=== PATIENT | female | born 1980 | race African-American/Black ===

== ENCOUNTER 2016-07-14 20:59 | Emergency (ER) | payer OTHER ==
[~2016-07-14] VITALS: Ht 157.5 cm; Wt 59.0 kg
[2016-07-14] MEDS ORDERED: ZIPRASIDONE IM 20 MG VIAL. IM ONE (21:30)
[2016-07-14 22:00] LABS: BASO % 1 % (0-3); EOS % 5 % (0-3); HEMATOCRIT 36.4 % (36.0-47.0); HEMOGLOBIN 11.9 g/dL (12.0-15.5); LYMPH # 1.9 x10^3/uL (1.0-4.8); LYMPH % 28 % (24-48); MEAN CORPUSCULAR HEMOGLOBIN 28 pg (25-35); MEAN CORPUSCULAR HGB CONC 33 g/dL (31-37); MEAN CORPUSCULAR VOLUME 86 fL (79-100); MONO % 11 % (0-9); NEUT % 56 % (31-73); PLATELET COUNT 248 x10^3/uL (140-400); RED BLOOD COUNT 4.23 x10^6/uL (3.50-5.40); RED CELL DISTRIBUTION WIDTH 13.4 % (11.5-14.5); WHITE BLOOD COUNT 6.8 x10^3/uL (4.0-11.0)
[2016-07-14 22:13] LABS: CREATININE 0.9 mg/dL (0.6-1.0); GFR 87.3; POTASSIUM 3.7 mmol/L (3.5-5.1)
[2016-07-14 22:18] LABS: ETHANOL < 10 mg/dL (0-10)
[2016-07-14 22:19] LABS: ALBUMIN 3.7 g/dL (3.4-5.0); ALBUMIN/GLOBULIN RATIO 0.8 (1.0-1.7); TOTAL BILIRUBIN 0.3 mg/dL (0.2-1.0); TOTAL PROTEIN 8.2 g/dL (6.4-8.2)
[2016-07-14 23:30] LABS: BILIRUBIN,URINE SMALL (NEG); GLUCOSE,URINE NEGATIVE (NEG); NITRITE,URINE POSITIVE (NEG); PH,URINE 5.5; UROBILINOGEN,URINE 0.2 mg/dL (0.2 mg/dL)
[2016-07-14 23:36] LABS: BARBITURATES NEG (NEG); BENZODIAZEPINES NEG (NEG); CANNABINOIDS POS (NEG); COCAINE NEG (NEG); METHADONE NEG (NEG); OPIATES NEG (NEG); PHENCYCLIDINE POS (NEG)
[2016-07-14 23:38] LABS: ETHANOL, URINE NEG (NEG)
[2016-07-14 23:41] LABS: PROTEIN,URINE NEGATIVE (NEG-TRACE)
[2016-07-14 23:42] LABS: BACTERIA,URINE MODERATE /HPF (0-FEW); RBC,URINE 0 /HPF (0-2); SQUAMOUS EPITHELIAL CELL,UR FEW /LPF
[2016-07-14 23:43] LABS: NEG OBC UR NEG
[2016-07-14 23:44] LABS: POS OBC UR POS
[2016-07-15 02:18] VITALS: BP 81/44
--- NOTE | 2016-07-15 03:44 | PHYS DOC ---
Past Medical History Past Medical History: No Pertinent History, Bipolar, Depression Past Surgical History: Cholecystectomy, Tubal ligation, Other Additional Past Surgical Histo: Conization. Alcohol Use: None Drug Use: None Adult General Chief Complaint Chief Complaint: PSYCH EVALUATION HPI HPI Patient is a 35 year old female who is in today by EMS and police after being picked up in a vehicle that was pulled over. Patient apparently was agitated and there was a concern that she was on drugs. Upon arrival to the ER patient was extremely agitated and confused. Patient was tearful and begging to see her f father. History and physical exam on this patient is unobtainable secondary to her uncooperative state upon arrival to the ER. Patient reports that she has no history of suicidal ideation the past. Patient denies any suicidal ideation currently. Patient reports she has a history of bipolar affective disorder. Patient denies any history of schizophrenia in the past. Patient denies any history of psychosis in the past. Patient denies any alcohol drug use. Patient reports that she was at home and her father was concerned about her so he called the ambulance. However in talking to EMS it appears that her father was driving in a car that she was in and the uphold over. The patient apparently had a warrant out for her arrest so they attempted to arrest her however secondary to her confused state they brought her here to the ER to be medically clear. Upon arrival to the ER patient was agitated tearful and not able to give a clear history. We had the psychiatric assessment team come to evaluate her secondary to possible concerns for suicidal ideation however patient denied any suicidal ideation to the psychiatric assessment team. Patient denies any fevers shaking chills nausea vomiting or diarrhea. Patient was given 10 mg of IM Geodon in order to help sedate her so that we can draw labs on her and evaluate her more thoroughly. After the Geodon was given patient slept for approximately 4 hours. Patient was easily arousable. Patient was reevaluated multiple times during her stay here. At 3:40 AM patient is currently alert awake oriented 3. Patient is ambulating. Patient's blood pressure is 108/72 currently. Patient currently has no complaints. Patient has no fevers shaking chills nausea vomiting diarrhea chest pain short of breath cough cold or runny nose. Patient reports that she lives with her parents and she is requesting to be released to their custody. Patient denies any suicidal ideation. I discussed with the patient her urine drug screen results of positive PCP, methamphetamine, marijuana and she reports that she is not surprised since she has used that in the past. Review of Systems Review of Systems Review of systems at 3:40 AM. Constitutional: Denies fever or chills [] Eyes: Denies change in visual acuity, redness, or eye pain [] HENT: Denies nasal congestion or sore throat [] Respiratory: Denies cough or shortness of breath [] Cardiovascular: No additional information not addressed in HPI [] GI: Denies abdominal pain, nausea, vomiting, bloody stools or diarrhea [] : Denies dysuria or hematuria [] Musculoskeletal: Denies back pain or joint pain [] Integument: Denies rash or skin lesions [] Neurologic: Denies headache, focal weakness or sensory changes [] Endocrine: Denies polyuria or polydipsia [] Current Medications Current Medications Current Medications Medications (Trade) Dose Ordered Sig/Yanni Start Time Stop Time Status Last Admin Dose Admin Ziprasidone (Geodon Im) 10 mg 1X ONCE 07/14/16 21:30 07/14/16 21:31 DC 07/14/16 21:30 10 MG Allergies Allergies Allergies Coded Allergies Type Severity Reaction Last Updated Verified No Known Drug Allergies 11/06/13 No Physical Exam Physical Exam Repeat physical exam at 3:41 AM. Constitutional: Well developed, well nourished, no acute distress, non-toxic appearance. [] HENT: Normocephalic, atraumatic, bilateral external ears normal, oropharynx moist, no oral exudates, nose normal. [] Eyes: PERRLA, EOMI, conjunctiva normal, no discharge. [] Neck: Normal range of motion, no tenderness, supple, no stridor. [] Cardiovascular:Heart rate regular rhythm, no murmur [] Lungs & Thorax: Bilateral breath sounds clear to auscultation [] Abdomen: Bowel sounds normal, soft, no tenderness, no masses, no pulsatile masses. [] Skin: Warm, dry, no erythema, no rash. [] Back: No tenderness, no CVA tenderness. [] Extremities: No tenderness, no cyanosis, no clubbing, ROM intact, no edema. [] Neurologic: Alert and oriented X 3, normal motor function, normal sensory function, no focal deficits noted. [] Psychologic: Affect normal, judgement normal, mood normal. [] Current Patient Data Vital Signs Vital Signs Date Time Temp Pulse Resp B/P Pulse Ox O2 Delivery O2 Flow Rate FiO2 07/15/16 02:18 77 81/44 99 Room Air 07/14/16 21:05 98.4 24 98.4 Lab Values Laboratory Tests Test 07/14/16 21:51 07/14/16 23:18 White Blood Count 6.8x10^3/uL (4.0-11.0) Red Blood Count 4.23x10^6/uL (3.50-5.40) Hemoglobin 11.9g/dL (12.0-15.5) L Hematocrit 36.4% (36.0-47.0) Mean Corpuscular Volume 86fL (79-100) Mean Corpuscular Hemoglobin 28pg (25-35) Mean Corpuscular Hemoglobin Concent 33g/dL (31-37) Red Cell Distribution Width 13.4% (11.5-14.5) Platelet Count 248x10^3/uL (140-400) Neutrophils (%) (Auto) 56% (31-73) Lymphocytes (%) (Auto) 28% (24-48) Monocytes (%) (Auto) 11% (0-9) H Eosinophils (%) (Auto) 5% (0-3) H Basophils (%) (Auto) 1% (0-3) Neutrophils # (Auto) 3.8x10^3uL (1.8-7.7) Lymphocytes # (Auto) 1.9x10^3/uL (1.0-4.8) Monocytes # (Auto) 0.7x10^3/uL (0.0-1.1) Eosinophils # (Auto) 0.3x10^3/uL (0.0-0.7) Basophils # (Auto) 0.0x10^3/uL (0.0-0.2) Sodium Level 143mmol/L (136-145) Potassium Level 3.7mmol/L (3.5-5.1) Chloride Level 105mmol/L (98-107) Carbon Dioxide Level 28mmol/L (21-32) Anion Gap 10 (6-14) Blood Urea Nitrogen 11mg/dL (7-20) Creatinine 0.9mg/dL (0.6-1.0) Estimated GFR (Cockcroft-Gault) 87.3 BUN/Creatinine Ratio 12 (6-20) Glucose Level 87mg/dL (70-99) Calcium Level 9.0mg/dL (8.5-10.1) Total Bilirubin 0.3mg/dL (0.2-1.0) Aspartate Amino Transferase (AST) 11U/L (15-37) L Alanine Aminotransferase (ALT) 12U/L (14-59) L Alkaline Phosphatase 73U/L (46-116) Total Protein 8.2g/dL (6.4-8.2) Albumin 3.7g/dL (3.4-5.0) Albumin/Globulin Ratio 0.8 (1.0-1.7) L Salicylates Level 4.7mg/dL (2.8-20.0) Salicylate Last Dose Date Salicylate Last Dose Time Acetaminophen Level < 2mcg/ml (10-30) L Acetaminophen Last Dose Date Acetaminophen Last Dose Time Ethyl Alcohol Level < 10mg/dL (0-10) Urine Collection Type Unknown Urine Color Svetlana Urine Clarity Clear Urine pH 5.5 Urine Specific [place] >=1.030 Urine Protein Negativemg/dL (NEG-TRACE) Urine Glucose (UA) Negativemg/dL (NEG) Urine Ketones (Stick) Tracemg/dL (NEG) Urine Blood Trace (NEG) Urine Nitrite Positive (NEG) Urine Bilirubin Small (NEG) Urine Urobilinogen Dipstick 0.2mg/dL (0.2 mg/dL) Urine Leukocyte Esterase Small (NEG) Urine RBC 0/HPF (0-2) Urine WBC 1-4/HPF (0-4) Urine Squamous Epithelial Cells Few/LPF Urine Bacteria Moderate/HPF (0-FEW) Urine Mucus Mod/LPF Urine Test Negative (NEG) Urine Opiates Screen Neg (NEG) Urine Methadone Screen Neg (NEG) Urine Barbiturates Neg (NEG) Urine Phencyclidine Screen Pos (NEG) Urine Amphetamine/Methamphetamine Pos (NEG) Urine Benzodiazepines Screen Neg (NEG) Urine Cocaine Screen Neg (NEG) Urine Cannabinoids Screen Pos (NEG) Urine Ethyl Alcohol Neg (NEG) Laboratory Tests 07/14/16 21:51 Laboratory Tests 07/14/16 21:51 EKG EKG [] Radiology/Procedures Radiology/Procedures [] Course & Med Decision Making Course & Med Decision Making Pertinent Labs and Imaging studies reviewed. (See chart for details) [] This is a 35-year-old female who presents to the ER today with altered mental status that was likely secondary to poly-drug abuse. Patient's urine drug screen was positive for PCP, methamphetamine, marijuana. Patient was given Geodon in the ER in order to help sedate her so that we can draw labs and assess her medically. After several hours in the ER sleeping and resting patient is currently alert awake and oriented 3 and bleeding without any problems at all. Patient is requesting to be released to the ER. Patient currently has no issues with competency with capacity to make decisions. Patient will be discharged home in stable condition. Dragon Disclaimer Dragon Disclaimer This electronic medical record was generated, in whole or in part, using a voice recognition dictation system. Departure Departure Impression: Primary Impression: PCP abuse Additional Impressions: Methamphetamine abuse Altered mental status Psychosis Disposition: 01 HOME, SELF-CARE Condition: IMPROVED Referrals: UNKNOWN PCP NAME (PCP) Patient Instructions: Drug Abuse, FAQs, Methamphetamine Abuse, Complications, Psychosis Scripts No Active Prescriptions or Reported Meds Problem Qualifiers ALHAJI ROBERTSON MD Jul 15, 2016 03:44
== END 2016-07-15 04:05 | disposition home or self-care (01) ==
LOC: ER 20:59
DX: F15.10 Other stimulant abuse, uncomplicated (principal); R41.82 Altered mental status, unspecified; F29 Unspecified psychosis not due to a substance or known physiological condition; F31.9 Bipolar disorder, unspecified; F16.10 Hallucinogen abuse, uncomplicated; Z98.51 Tubal ligation status; Z90.49 Acquired absence of other specified parts of digestive tract
CPT/HCPCS: 36415; 80053; 81001; 81025; 85027; 87086; 96372; 99284; G0480; G0481; G6038; J3486; 80196

== ENCOUNTER 2017-08-16 15:14 | Emergency (ER) | payer OTHER ==
[2017-08-16] MEDS: ONDANSETRON PF 4 MG/2 ML VIAL. IV ×2 (15:54)
[2017-08-16] MEDS: IV NORMAL SALINE 1000ML BAG 1,000 ML IV ×2 (15:57)
[2017-08-16] MEDS: KETOROLAC 30 MG/ML INJ. IV ×2 (16:29)
[2017-08-16] MEDS: HYDROcodone/APAP 5/325MG 1 TAB TABLET PO ×2 (16:32)
[2017-08-16] MEDS: PENICILLIN G BENZATHINE LA 2,400,000 UNIT/4 ML DISP.SYRIN. IM ×2 (17:04)
[2017-08-16] MEDS ORDERED: ONDANSETRON ODT 4 MG TAB.RAPDIS. ×2 (17:33)
[2017-08-16] MEDS: ONDANSETRON ODT 4 MG TAB.RAPDIS. PO ×2 (17:37)
== END 2017-08-16 18:03 | disposition home or self-care (01) ==
LOC: ER 15:14
DX: A53.9 Syphilis, unspecified (principal); J02.9 Acute pharyngitis, unspecified; F31.9 Bipolar disorder, unspecified; F12.10 Cannabis abuse, uncomplicated; F15.10 Other stimulant abuse, uncomplicated; F16.10 Hallucinogen abuse, uncomplicated; F17.200 Nicotine dependence, unspecified, uncomplicated; Z90.49 Acquired absence of other specified parts of digestive tract
CPT/HCPCS: 96361; 96372; 96374; 96375; 99284-25; J0561; J1885; J2405; J7030; Q0162

== ENCOUNTER 2017-11-23 17:11 | Emergency (ER) | payer OTHER ==
[2017-11-23 17:45] LABS: ADD MAN DIFF? NO
[2017-11-23 17:49] LABS: BASO # 0.1 x10^3/uL (0.0-0.2); BASO % 1 % (0-3); EOS # 0.3 x10^3/uL (0.0-0.7); EOS % 5 % (0-3); HEMATOCRIT 37.3 % (36.0-47.0); HEMOGLOBIN 12.3 g/dL (12.0-15.5); LYMPH # 1.7 x10^3/uL (1.0-4.8); LYMPH % 30 % (24-48); MEAN CORPUSCULAR HEMOGLOBIN 28 pg (25-35); MEAN CORPUSCULAR HGB CONC 33 g/dL (31-37); MEAN CORPUSCULAR VOLUME 83 fL (79-100); MONO # 0.6 x10^3/uL (0.0-1.1); MONO % 12 % (0-9); NEUT # 2.9 x10^3uL (1.8-7.7); NEUT % 53 % (31-73); PLATELET COUNT 200 x10^3/uL (140-400); RED BLOOD COUNT 4.49 x10^6/uL (3.50-5.40); RED CELL DISTRIBUTION WIDTH 15.9 % (11.5-14.5); WHITE BLOOD COUNT 5.6 x10^3/uL (4.0-11.0)
[2017-11-23 18:18] LABS: ANION GAP 7 (6-14); BLOOD UREA NITROGEN 11 mg/dL (7-20); BUN/CREATININE RATIO 14 (6-20); CALCIUM 8.5 mg/dL (8.5-10.1); CARBON DIOXIDE 28 mmol/L (21-32); CHLORIDE 102 mmol/L (98-107); CREATININE 0.8 mg/dL (0.6-1.0); GFR 98.8; GLUCOSE 122 mg/dL (70-99); POTASSIUM 3.3 mmol/L (3.5-5.1); SODIUM 137 mmol/L (136-145)
[2017-11-23 18:20] LABS: ALBUMIN 3.5 g/dL (3.4-5.0); ALBUMIN/GLOBULIN RATIO 0.7 (1.0-1.7); ALK PHOS 86 U/L (46-116); ALT (SGPT) 21 U/L (14-59); AST (SGOT) 18 U/L (15-37); TOTAL BILIRUBIN 0.4 mg/dL (0.2-1.0); TOTAL PROTEIN 8.2 g/dL (6.4-8.2)
[2017-11-23 18:26] LABS: ETHANOL < 10 mg/dL (0-10); TROPONINI < 0.017 ng/mL (0.000-0.055)
[2017-11-23 18:28] LABS: CKMB INDEX 0.6 % (0-4); CREATINE KINASE 159 U/L (26-192)
[2017-11-23] MEDS: IV NORMAL SALINE 1000ML BAG 1,000 ML IV (18:30)
[2017-11-23] MEDS: ONDANSETRON PF 4 MG/2 ML VIAL. IV (18:30)
[2017-11-23 19:19] LABS: BILIRUBIN,URINE SMALL (NEG); CLARITY,URINE CLEAR; COLOR,URINE YELLOW; GLUCOSE,URINE NEGATIVE (NEG); NITRITE,URINE NEGATIVE (NEG); PH,URINE 5.5; PROTEIN,URINE NEGATIVE (NEG-TRACE); UROBILINOGEN,URINE 0.2 mg/dL (0.2 mg/dL)
[2017-11-23 19:38] LABS: AMPHETAMINE/METHAMPHETAMINE POS (NEG); BARBITURATES NEG (NEG); BENZODIAZEPINES NEG (NEG); CANNABINOIDS POS (NEG); COCAINE POS (NEG); ETHANOL, URINE NEG (NEG); METHADONE NEG (NEG); OPIATES NEG (NEG); PHENCYCLIDINE POS (NEG)
[2017-11-23 19:40] LABS: BACTERIA,URINE FEW /HPF (0-FEW); RBC,URINE RARE /HPF (0-2); SQUAMOUS EPITHELIAL CELL,UR MANY /LPF; WBC,URINE RARE /HPF (0-4)
[2017-11-23] MEDS: POTASSIUM CHLORIDE 20 MEQ TABLET.ER. PO (20:02)
[2017-11-24 08:20] LABS: POC GLUCOSE 125 mg/dL (70-99)
== END 2017-11-23 22:22 | disposition home or self-care (01) ==
LOC: ER 22:22
DX: F29 Unspecified psychosis not due to a substance or known physiological condition (principal); F19.10 Other psychoactive substance abuse, uncomplicated; F31.9 Bipolar disorder, unspecified; F12.10 Cannabis abuse, uncomplicated; F15.10 Other stimulant abuse, uncomplicated; F16.10 Hallucinogen abuse, uncomplicated
CPT/HCPCS: 36415; 71045; 80053; 80307; 81001; 82553; 82962; 84484; 85025; 93005; 96361; 96374; 99285-25; G0480; J2405; J7030

== ENCOUNTER 2018-06-01 12:48 | Emergency (ER) | payer OTHER ==
[~2018-06-01] VITALS: Ht 160 cm; Wt 60.8 kg
[~2018-06-01 12:48] MED LIST: FLUC150T PO
[2018-06-01 12:56] VITALS: BP 115/75
[2018-06-01] MEDS: DIPHTH,PERTUSS(ACELL),TET TOX 0.5 ML DISP.SYRIN. VAX IM ONE (13:09)
--- NOTE | 2018-06-01 13:21 | PHYS DOC ---
Past Medical History Past Medical History: Bipolar, Depression Past Surgical History: Cholecystectomy, Tubal ligation, Other Additional Past Surgical Histo: Conization Alcohol Use: None Drug Use: Marijuana, Methamphetamine, Phencyclidine Adult General Chief Complaint Chief Complaint: LACERATION/AVULSION [facility] HPI Patient is a 37 year old female who presents with a small laceration to her lower lip with a small laceration to her upper lip as well. The patient states that she was in her bathroom today when the glass sliding door fell from the shower track. She states that it hit her in her lip. She denies any other injury. The lacerations are not bleeding or gaping. She is not up-to-date on her tetanus status. Review of Systems Review of Systems Constitutional: Denies fever or chills [] Eyes: Denies change in visual acuity, redness, or eye pain [] HENT: Denies nasal congestion or sore throat [] Respiratory: Denies cough or shortness of breath [] Cardiovascular: No additional information not addressed in HPI [] GI: Denies abdominal pain, nausea, vomiting, bloody stools or diarrhea [] : Denies dysuria or hematuria [] Musculoskeletal: Denies back pain or joint pain [] Integument: See history of present illness Neurologic: Denies headache, focal weakness or sensory changes [] Endocrine: Denies polyuria or polydipsia [] All other systems were reviewed and found to be within normal limits, except as documented in this note. Current Medications Current Medications Current Medications Medications (Trade) Dose Ordered Sig/Yanni Start Time Stop Time Status Last Admin Dose Admin Diphtheria/ Tetanus/Acell Pertussis (Boostrix) 0.5 ml ONCE ONCE 06/01/18 13:15 06/01/18 13:16 DC 06/01/18 13:09 0.5 ML Allergies Allergies Allergies Coded Allergies Type Severity Reaction Last Updated Verified No Known Drug Allergies 08/29/17 No Physical Exam Physical Exam Constitutional: Well developed, well nourished, no acute distress, non-toxic appearance. [] Cardiovascular:Heart rate regular rhythm, no murmur [] Lungs & Thorax: Bilateral breath sounds clear to auscultation [] Abdomen: Bowel sounds normal, soft, no tenderness, no masses, no pulsatile masses. [] Skin: 0.5 cm shallow laceration to the lower lip with no gaping, 0.25 cm laceration to the upper lip with no gaping Neurologic: Alert and oriented X 3, normal motor function, normal sensory function, no focal deficits noted. [] Psychologic: Affect normal, judgement normal, mood normal. [] Current Patient Data Vital Signs Vital Signs Date Time Temp Pulse Resp B/P (MAP) Pulse Ox O2 Delivery O2 Flow Rate FiO2 06/01/18 12:56 98.1 96 16 115/75 (88) 98 Room Air 98.1 EKG EKG [] Radiology/Procedures Radiology/Procedures [] Course & Med Decision Making Course & Med Decision Making Pertinent Labs and Imaging studies reviewed. (See chart for details) I explained to the patient that she would have more problem with suturing these lacerations then letting them heal naturally. She has been encouraged to use Chapstick to help keep the lips moisturized while they are healing and to keep them clean. She is in agreement with this plan. Dragon Disclaimer Dragon Disclaimer This electronic medical record was generated, in whole or in part, using a voice recognition dictation system. Departure Departure Impression: Primary Impression: Laceration Disposition: 01 HOME, SELF-CARE Condition: STABLE Referrals: NO PCP (PCP) Patient Instructions: Laceration Care, Adult Additional Instructions: Keep wound clean and dry. Use the lip moisturizer you were given to help with healing. Follow-up with your primary care provider if not improving in one week or return to the emergency department if worsening. BHARATHI ADAMS APRN Jun 01, 2018 13:21
== END 2018-06-01 13:24 | disposition home or self-care (01) ==
LOC: ER 12:48
DX: S01.511A Laceration without foreign body of lip, initial encounter (principal); W22.8XXA Striking against or struck by other objects, initial encounter; Y93.89 Activity, other specified; Y92.091 Bathroom in other non-institutional residence as the place of occurrence of the external cause; Y99.8 Other external cause status
CPT/HCPCS: 90471; 90715; 99283

== ENCOUNTER 2019-05-14 10:27 | Emergency (ER) | payer MEDICAID, OTHER ==
[~2019-05-14] VITALS: Ht 160 cm; Wt 65.8 kg
[2019-05-14 11:13] LABS: BILIRUBIN,URINE NEGATIVE (NEG); CLARITY,URINE CLEAR; COLOR,URINE YELLOW; NITRITE,URINE NEGATIVE (NEG); PH,URINE 6.5; PROTEIN,URINE NEGATIVE (NEG-TRACE)
[2019-05-14 11:28] LABS: BACTERIA,URINE 0 /HPF (0-FEW); RBC,URINE 0 /HPF (0-2); SQUAMOUS EPITHELIAL CELL,UR MOD /LPF
--- NOTE | 2019-05-14 11:29 | PHYS DOC ---
Past Medical History Past Medical History: Bipolar, Depression Past Surgical History: Cholecystectomy, Tubal ligation, Other Additional Past Surgical Histo: Conization Alcohol Use: None Drug Use: Marijuana, Methamphetamine, Phencyclidine Adult General Chief Complaint Chief Complaint: VAGINAL PROBLEM HPI HPI Patient is a 38 year old female who presents with vaginal discharge, flank pain, chills, nausea this been ongoing for several weeks. The patient rates her pain 6 out of 10 in severity and sharp. No other complaints. Review of Systems Review of Systems Constitutional: Reports fever or chills [] Eyes: Denies change in visual acuity, redness, or eye pain [] HENT: Denies nasal congestion or sore throat [] Respiratory: Denies cough or shortness of breath [] Cardiovascular: No additional information not addressed in HPI [] GI: Reports abdominal pain, nausea, Denies vomiting, bloody stools or diarrhea [] : Denies dysuria but reports discharge and hematuria. Musculoskeletal: Denies back pain or joint pain [] Integument: Denies rash or skin lesions [] Neurologic: Denies headache, focal weakness or sensory changes [] Endocrine: Denies polyuria or polydipsia [] Complete systems were reviewed and found to be within normal limits, except as documented in this note. Current Medications Current Medications Current Medications Medications (Trade) Dose Ordered Sig/Yanni Start Time Stop Time Status Last Admin Dose Admin Morphine Sulfate (Morphine Sulfate) 4 mg 1X ONCE 05/14/19 11:30 05/14/19 11:31 DC 05/14/19 11:54 4 MG Ondansetron HCl (Zofran) 4 mg 1X ONCE 05/14/19 11:30 05/14/19 11:31 DC 05/14/19 11:55 4 MG Sodium Chloride 1,000 ml @ 1,000 mls/hr 1X ONCE 05/14/19 11:30 05/14/19 12:29 DC 05/14/19 12:00 1,000 MLS/HR Allergies Allergies Allergies Coded Allergies Type Severity Reaction Last Updated Verified Sulfa (Sulfonamide Antibiotics) Allergy Severe Swelling 05/14/19 Yes Physical Exam Physical Exam Constitutional: Well developed, well nourished, no acute distress, non-toxic appearance. [] HENT: Normocephalic, atraumatic, bilateral external ears normal, oropharynx blanco st, no oral exudates, nose normal. [] Eyes: PERRLA, EOMI, conjunctiva normal, no discharge. [] Neck: Normal range of motion, no tenderness, supple, no stridor. [] Cardiovascular:Heart rate regular rhythm, no murmur [] Lungs & Thorax: Bilateral breath sounds clear to auscultation [] Abdomen: Bowel sounds normal, soft, flank tenderness bilaterally., no masses, no pulsatile masses. [] Skin: Warm, dry, no erythema, no rash. [] Back: No tenderness, no CVA tenderness. [] Extremities: No tenderness, no cyanosis, no clubbing, ROM intact, no edema. [] Neurologic: Alert and oriented X 3, normal motor function, normal sensory function, no focal deficits noted. [] Psychologic: Affect normal, judgement normal, mood normal. [] Pelvic Exam: External exam is normal and without rash, No CMT, OS is closed, white discharge, uterus NTTP, No adnexal masses or tenderness noted Current Patient Data Vital Signs Vital Signs Date Time Temp Pulse Resp B/P (MAP) Pulse Ox O2 Delivery O2 Flow Rate FiO2 05/14/19 11:54 16 98 Room Air 05/14/19 11:03 97.7 112 119/67 (84) 97.7 Lab Values Laboratory Tests Test 05/14/19 10:50 05/14/19 11:01 05/14/19 11:43 Urine Collection Type Unknown Urine Color Yellow Urine Clarity Clear Urine pH 6.5 Urine Specific [place] 1.025 Urine Protein Negative mg/dL (NEG-TRACE) Urine Glucose (UA) Negative mg/dL (NEG) Urine Ketones (Stick) Negative mg/dL (NEG) Urine Blood Negative (NEG) Urine Nitrite Negative (NEG) Urine Bilirubin Negative (NEG) Urine Urobilinogen Dipstick 1.0 mg/dL (0.2 mg/dL) Urine Leukocyte Esterase Negative (NEG) Urine RBC 0 /HPF (0-2) Urine WBC 1-4 /HPF (0-4) Urine Squamous Epithelial Cells Mod /LPF Urine Bacteria 0 /HPF (0-FEW) Urine Mucus Mod /LPF POC Urine HCG, Qualitative Hcg negative (Negative) White Blood Count 9.2 x10^3/uL (4.0-11.0) Red Blood Count 4.57 x10^6/uL (3.50-5.40) Hemoglobin 13.2 g/dL (12.0-15.5) Hematocrit 38.8 % (36.0-47.0) Mean Corpuscular Volume 85 fL (79-100) Mean Corpuscular Hemoglobin 29 pg (25-35) Mean Corpuscular Hemoglobin Concent 34 g/dL (31-37) Red Cell Distribution Width 14.6 % (11.5-14.5) H Platelet Count 233 x10^3/uL (140-400) Neutrophils (%) (Auto) 65 % (31-73) Lymphocytes (%) (Auto) 20 % (24-48) L Monocytes (%) (Auto) 11 % (0-9) H Eosinophils (%) (Auto) 4 % (0-3) H Basophils (%) (Auto) 1 % (0-3) Neutrophils # (Auto) 6.0 x10^3/uL (1.8-7.7) Lymphocytes # (Auto) 1.9 x10^3/uL (1.0-4.8) Monocytes # (Auto) 1.0 x10^3/uL (0.0-1.1) Eosinophils # (Auto) 0.3 x10^3/uL (0.0-0.7) Basophils # (Auto) 0.1 x10^3/uL (0.0-0.2) Sodium Level 137 mmol/L (136-145) Potassium Level 3.8 mmol/L (3.5-5.1) Chloride Level 100 mmol/L (98-107) Carbon Dioxide Level 29 mmol/L (21-32) Anion Gap 8 (6-14) Blood Urea Nitrogen 14 mg/dL (7-20) Creatinine 1.3 mg/dL (0.6-1.0) H Estimated GFR (Cockcroft-Gault) 56.1 BUN/Creatinine Ratio 11 (6-20) Glucose Level 83 mg/dL (70-99) Calcium Level 9.0 mg/dL (8.5-10.1) Total Bilirubin 0.2 mg/dL (0.2-1.0) Aspartate Amino Transferase (AST) 16 U/L (15-37) Alanine Aminotransferase (ALT) 18 U/L (14-59) Alkaline Phosphatase 99 U/L (46-116) Total Protein 8.2 g/dL (6.4-8.2) Albumin 3.2 g/dL (3.4-5.0) L Albumin/Globulin Ratio 0.6 (1.0-1.7) L Laboratory Tests 05/14/19 11:43 Laboratory Tests 05/14/19 11:43 Microbiology 05/14/19 Wet Prep - Final, Complete EKG EKG [] Radiology/Procedures Radiology/Procedures [][facility] [address] [place] [address] IMAGING REPORT Signed PATIENT: MILLI KNUTSON ACCOUNT: [id number] : 1980 LOCATION: ER AGE: 38 SEX: F EXAM STATUS: REG ER ORD. PHYSICIAN: DAMION JOSHI APRN REASON: flank pain, chills PROCEDURE: CT ABDOMEN PELVIS WO CONTRAST EXAM: CT ABDOMEN/PELVIS WITHOUT CONTRAST. HISTORY: Flank pain, chills. TECHNIQUE: Computed tomography of the abdomen and pelvis was performed without intravenous contrast. COMPARISON: None. FINDINGS: Lung windows through the visualized portions of the bases reveal mild atelectasis. Bone windows reveal no suspicious lesions. There are no renal or ureteral calculi. There is no hydronephrosis. There are no clear renal lesions without contrast. The gallbladder is surgically absent. The liver, pancreas, spleen, and adrenal glands are unremarkable without contrast. There are no pathologically enlarged lymph nodes. The appendix is not inflamed. There is no small bowel obstruction. Fallopian tube closure device is no longer appear associated with the adnexa. IMPRESSION: 1. No renal or ureteral calculus. No hydronephrosis. 2. Bilateral fallopian tube closure device is no longer appear associated with the adnexa. Correlate for undesired fertility. *One or more of the following individualized dose reduction techniques were utilized for this examination: 1. Automated exposure control. 2. Adjustment of the mA and/or kV according to patient size. 3. Use of iterative reconstruction technique. Electronically signed by: Praveena Garcia MD (05/14/2019 1:02 PM) [facility] DICTATED and SIGNED BY: MAUDE GARCIA MD DATE: 05/14/19 6392 Course & Med Decision Making Course & Med Decision Making Pertinent Labs and Imaging studies reviewed. (See chart for details) Will get pelvic, labs, CT and ua. Will give supportive care. Wet prep shows trich and clue cells. Will treat. GC/CHLAM is pending. Em Disclaimer Em Disclaimer This electronic medical record was generated, in whole or in part, using a voice recognition dictation system. Departure Departure Impression: Primary Impression: Trichomoniasis Additional Impressions: Bacterial vaginosis Concern about STD in female without diagnosis Disposition: HOME, SELF-CARE Condition: STABLE Referrals: NO PCP (PCP) Patient Instructions: Bacterial Vaginosis, Sexually Transmitted Disease, Trichomoniasis Additional Instructions: Thank you for visiting [facility]. We appreciate you trusting us with your care. If any additional problems come up don't hesitate to return to visit us. Please follow up with your primary care provider so they can plan additional care if needed and know about the problem that you had. If symptoms worsen come back to the Emergency Department. Any concerning symptoms that start such as chest pain, shortness of air, weakness or numbness on one side of the body, running high fevers or any other concerning symptoms return to the ER. You have been prescribed an antibiotic today to help fight your infection. P jenae take all of the antibiotic as directed. If after 48 hours the infection is not improving, please return for more care. If the infection worsens, return to ER for additional care. Please do not drink alcohol with Flagyl. Scripts Metronidazole (FLAGYL) 500 Mg Tablet 1 TAB PO BID for 7 Days, #14 TAB Prov: DAMION JOSHI APRN 05/14/19 Problem Qualifiers DAMION JOSHI APRN May 14, 2019 11:29
[2019-05-14] MEDS ORDERED: IV NORMAL SALINE 1000ML BAG 1,000 ML IV ONE (11:30)
[2019-05-14] MEDS ORDERED: ONDANSETRON PF 4 MG/2 ML VIAL. IV ONE (11:30)
[2019-05-14] MEDS ORDERED: MORPHINE SULFATE 4 MG/ML VIAL. IV ONE (11:30)
[2019-05-14 12:10] LABS: CREATININE 1.3 mg/dL (0.6-1.0); GFR 56.1; POTASSIUM 3.8 mmol/L (3.5-5.1)
[2019-05-14 12:12] LABS: BASO # 0.1 x10^3/uL (0.0-0.2); BASO % 1 % (0-3); EOS # 0.3 x10^3/uL (0.0-0.7); EOS % 4 % (0-3); HEMATOCRIT 38.8 % (36.0-47.0); HEMOGLOBIN 13.2 g/dL (12.0-15.5); LYMPH # 1.9 x10^3/uL (1.0-4.8); LYMPH % 20 % (24-48); MEAN CORPUSCULAR HEMOGLOBIN 29 pg (25-35); MEAN CORPUSCULAR HGB CONC 34 g/dL (31-37); MEAN CORPUSCULAR VOLUME 85 fL (79-100); MONO % 11 % (0-9); NEUT % 65 % (31-73); PLATELET COUNT 233 x10^3/uL (140-400); RED BLOOD COUNT 4.57 x10^6/uL (3.50-5.40); RED CELL DISTRIBUTION WIDTH 14.6 % (11.5-14.5); WHITE BLOOD COUNT 9.2 x10^3/uL (4.0-11.0)
[2019-05-14 12:16] LABS: ALBUMIN 3.2 g/dL (3.4-5.0); ALBUMIN/GLOBULIN RATIO 0.6 (1.0-1.7); TOTAL BILIRUBIN 0.2 mg/dL (0.2-1.0); TOTAL PROTEIN 8.2 g/dL (6.4-8.2)
[2019-05-14 12:30] VITALS: BP 96/70
--- NOTE | 2019-05-14 13:04 | RAD ---
EXAM: CT ABDOMEN/PELVIS WITHOUT CONTRAST. HISTORY: Flank pain, chills. TECHNIQUE: Computed tomography of the abdomen and pelvis was performed without intravenous contrast. COMPARISON: None. FINDINGS: Lung windows through the visualized portions of the bases reveal mild atelectasis. Bone windows reveal no suspicious lesions. There are no renal or ureteral calculi. There is no hydronephrosis. There are no clear renal lesions without contrast. The gallbladder is surgically absent. The liver, pancreas, spleen, and adrenal glands are unremarkable without contrast. There are no pathologically enlarged lymph nodes. The appendix is not inflamed. There is no small bowel obstruction. Fallopian tube closure device is no longer appear associated with the adnexa. IMPRESSION: 1. No renal or ureteral calculus. No hydronephrosis. 2. Bilateral fallopian tube closure device is no longer appear associated with the adnexa. Correlate for undesired fertility. *One or more of the following individualized dose reduction techniques were utilized for this examination: 1. Automated exposure control. 2. Adjustment of the mA and/or kV according to patient size. 3. Use of iterative reconstruction technique. Electronically signed by: Praveena Garcia MD (05/14/2019 1:02 PM) [facility]
[2019-05-14] MEDS ORDERED: METR500T PO (13:10)
[2019-05-17 18:09] LABS: GC PROBE Negative (Negative)
== END 2019-05-14 13:23 | disposition home or self-care (01) ==
LOC: ER 10:27
DX: N76.0 Acute vaginitis (principal); B96.89 Other specified bacterial agents as the cause of diseases classified elsewhere; A59.9 Trichomoniasis, unspecified; Z20.2 Contact with and (suspected) exposure to infections with a predominantly sexual mode of transmission; F31.9 Bipolar disorder, unspecified; Z90.49 Acquired absence of other specified parts of digestive tract; Z98.51 Tubal ligation status; Z88.2 Allergy status to sulfonamides
CPT/HCPCS: 36415; 74176; 80053; 81001; 81025; 85025; 87491; 87591; 96374; 96375; 99285; J2270; J2405; J7030; Q0111

== ENCOUNTER 2019-07-22 14:00 | Emergency (ER) | payer OTHER ==
[~2019-07-22] VITALS: Ht 160 cm; Wt 105.0 kg
[~2019-07-22 14:00] MED LIST changes: +METR500T PO
--- NOTE | 2019-07-22 14:37 | PHYS DOC ---
Past Medical History Past Medical History: Bipolar, Depression Past Surgical History: Cholecystectomy, Tubal ligation, Other Additional Past Surgical Histo: Conization Alcohol Use: None Drug Use: Marijuana, Methamphetamine, Phencyclidine Social History Narrative: LAST USED MARIJUANA 1 WK AGO Adult General Chief Complaint Chief Complaint: ABDOMINAL PAIN HPI HPI Patient is a 38 year old female who presents with low mid abdominal pain that wraps around to her back. The last 3 days. She states when she urinates she will have a cramping sharp pain. She denies any blood in her urine. She states that she does have urinary frequency. She also has left lower back dental pain does has a broken tooth. She states she does not have a dentist. Review of Systems Review of Systems GI: Low mid abdominal pain, denies nausea, vomiting, bloody stools or diarrhea [] : dysuria or hematuria [] Musculoskeletal: Lateral low back pain or joint pain [] All other systems were reviewed and found to be within normal limits, except as documented in this note. Current Medications Current Medications Current Medications Medications (Trade) Dose Ordered Sig/Yanni Start Time Stop Time Status Last Admin Dose Admin Acetaminophen/ Hydrocodone Bitart (Lortab 5/325) 1 tab 1X ONCE 07/22/19 14:45 07/22/19 14:46 DC 07/22/19 14:43 1 TAB Phenazopyridine HCl (Pyridium) 200 mg 1X ONCE 07/22/19 14:45 07/22/19 14:46 DC 07/22/19 14:43 200 MG Allergies Allergies Allergies Coded Allergies Type Severity Reaction Last Updated Verified Sulfa (Sulfonamide Antibiotics) Allergy Severe Swelling 05/14/19 Yes Physical Exam Physical Exam Constitutional: Well developed, well nourished, no acute distress, non-toxic appearance. [] HENT: Normocephalic, atraumatic, bilateral external ears normal, oropharynx moist, no oral exudates, nose normal. Left lower back molar broken with red gum line. No facial swelling. [] Eyes: PERRLA, EOMI, conjunctiva normal, no discharge. [] Neck: Normal range of motion, no tenderness, supple, no stridor. [] Cardiovascular:Heart rate regular rhythm, no murmur [] Lungs & Thorax: Bilateral breath sounds clear to auscultation [] Abdomen: Bowel sounds normal, soft, no tenderness, no masses, no pulsatile masses. [] Skin: Warm, dry, no erythema, no rash. [] Back: No tenderness, Bilateral CVA tenderness. [] Extremities: No tenderness, no cyanosis, no clubbing, ROM intact, no edema. [] Neurologic: Alert and oriented X 3, normal motor function, normal sensory function, no focal deficits noted. [] Psychologic: Affect normal, judgement normal, mood normal. [] Current Patient Data Vital Signs Vital Signs Date Time Temp Pulse Resp B/P (MAP) Pulse Ox O2 Delivery O2 Flow Rate FiO2 07/22/19 15:13 85 111/71 (84) 100 Room Air 07/22/19 14:43 16 07/22/19 14:00 98.6 98.6 Lab Values Laboratory Tests Test 07/22/19 14:03 07/22/19 14:45 Urine Collection Type Unknown Urine Color Yellow Urine Clarity Clear Urine pH 6.0 Urine Specific [place] >=1.030 Urine Protein Negative mg/dL (NEG-TRACE) Urine Glucose (UA) Negative mg/dL (NEG) Urine Ketones (Stick) Negative mg/dL (NEG) Urine Blood Negative (NEG) Urine Nitrite Negative (NEG) Urine Bilirubin Negative (NEG) Urine Urobilinogen Dipstick 1.0 mg/dL (0.2 mg/dL) Urine Leukocyte Esterase Negative (NEG) Urine RBC 0 /HPF (0-2) Urine WBC Occ /HPF (0-4) Urine Squamous Epithelial Cells Many /LPF Urine Bacteria Moderate /HPF (0-FEW) Urine Test Negative (NEG) Urine Opiates Screen Neg (NEG) Urine Methadone Screen Neg (NEG) Urine Barbiturates Neg (NEG) Urine Phencyclidine Screen Neg (NEG) Urine Amphetamine/Methamphetamine Pos (NEG) Urine Benzodiazepines Screen Neg (NEG) Urine Cocaine Screen Pos (NEG) Urine Cannabinoids Screen Pos (NEG) Urine Ethyl Alcohol Neg (NEG) White Blood Count 8.5 x10^3/uL (4.0-11.0) Red Blood Count 4.31 x10^6/uL (3.50-5.40) Hemoglobin 12.4 g/dL (12.0-15.5) Hematocrit 36.9 % (36.0-47.0) Mean Corpuscular Volume 86 fL (79-100) Mean Corpuscular Hemoglobin 29 pg (25-35) Mean Corpuscular Hemoglobin Concent 34 g/dL (31-37) Red Cell Distribution Width 14.3 % (11.5-14.5) Platelet Count 234 x10^3/uL (140-400) Neutrophils (%) (Auto) 62 % (31-73) Lymphocytes (%) (Auto) 21 % (24-48) L Monocytes (%) (Auto) 13 % (0-9) H Eosinophils (%) (Auto) 3 % (0-3) Basophils (%) (Auto) 0 % (0-3) Neutrophils # (Auto) 5.3 x10^3/uL (1.8-7.7) Lymphocytes # (Auto) 1.8 x10^3/uL (1.0-4.8) Monocytes # (Auto) 1.1 x10^3/uL (0.0-1.1) Eosinophils # (Auto) 0.3 x10^3/uL (0.0-0.7) Basophils # (Auto) 0.0 x10^3/uL (0.0-0.2) Sodium Level 140 mmol/L (136-145) Potassium Level 3.7 mmol/L (3.5-5.1) Chloride Level 102 mmol/L (98-107) Carbon Dioxide Level 30 mmol/L (21-32) Anion Gap 8 (6-14) Blood Urea Nitrogen 10 mg/dL (7-20) Creatinine 1.0 mg/dL (0.6-1.0) Estimated GFR (Cockcroft-Gault) 75.9 BUN/Creatinine Ratio 10 (6-20) Glucose Level 91 mg/dL (70-99) Calcium Level 8.7 mg/dL (8.5-10.1) Total Bilirubin 0.1 mg/dL (0.2-1.0) L Aspartate Amino Transferase (AST) 14 U/L (15-37) L Alanine Aminotransferase (ALT) 20 U/L (14-59) Alkaline Phosphatase 100 U/L (46-116) Total Protein 7.1 g/dL (6.4-8.2) Albumin 3.2 g/dL (3.4-5.0) L Albumin/Globulin Ratio 0.8 (1.0-1.7) L Laboratory Tests 07/22/19 14:45 Laboratory Tests 07/22/19 14:45 EKG EKG [] Radiology/Procedures Radiology/Procedures [] Impressions: [facility] [address] [place] [address] IMAGING REPORT Signed PATIENT: MILLI KNUTSON ACCOUNT: [id number] : 1980 LOCATION: ER AGE: 38 SEX: F EXAM STATUS: REG ER ORD. PHYSICIAN: AMBROSE CRISTOBAL APRN REASON: CVA TENDERNESS, LOWER ABD PAIN PROCEDURE: CT ABDOMEN PELVIS WO CONTRAST EXAM: Abdomen and pelvis CT without intravenous contrast. HISTORY: Costovertebral angle tenderness. TECHNIQUE: Computed tomographic images of the abdomen and pelvis were obtained without contrast. Multiplanar reformatting was performed. *One or more of the following individualized dose reduction techniques were utilized for this examination: 1. Automated exposure control. 2. Adjustment of the mA and/or kV according to patient size. 3. Use of iterative reconstruction technique. COMPARISON: 05/14/2019. FINDINGS: Evaluation of the lower thorax demonstrates no infiltrate or pleural effusion. The heart is normal in size. No hepatic lesion is seen on this noncontrast exam. There is a hepatic granuloma. The gallbladder is surgically absent. The pancreas, spleen and adrenal glands are unremarkable. There is no evidence of nephroureterolithiasis or hydronephrosis. There are few pelvic phleboliths. There is no evidence of appendicitis. There is colonic diverticulosis. There is no evidence of diverticulitis. The bladder and uterus are unremarkable. There are fallopian tube closure devices within the peritoneal cavity. These are separate from the fallopian tubes. There is no suspicious osseous lesion. IMPRESSION: 1. No convincing acute abdominal or pelvic finding. 2. Colonic diverticulosis. 3. Displaced fallopian tube closure devices. These are not associated with the fallopian tubes. Electronically signed by: Milly Ackerman MD (07/22/2019 4:02 PM) [place] DICTATED and SIGNED BY: MILLY ACKERMAN MD DATE: 07/22/19 1600 Course & Med Decision Making Course & Med Decision Making Abdomen is soft and nontender. CVA tenderness bilaterally. Left back molar is broken and gum line is reddened. No facial swelling. Afebrile. Vital signs within normal limits. Patient denies nausea, vomiting, diarrhea, fever, headache, dizziness, visual changes, numbness or tingling, weakness, body aches, vaginal discharge. Patient states she last took Tylenol yesterday for pain. Patient has a history of bipolar and marijuana use. Patient is positive for amphetamines and cocaine and marijuana. Urinalysis does not show infection. [] Dragon Disclaimer Dragon Disclaimer This electronic medical record was generated, in whole or in part, using a voice recognition dictation system. Departure Departure Impression: Primary Impression: Dysuria Additional Impression: Pain, dental Disposition: HOME, SELF-CARE Condition: STABLE Referrals: NO PCP (PCP) Patient Instructions: Dental Abscess, Dental Caries, Dysuria Additional Instructions: Follow-up with a dentist as soon as possible. Take medications as prescribed. Scripts Penicillin V Potassium (PENICILLIN V POTASSIUM) 500 Mg Tablet 1 TAB PO QID for 10 Days, #40 TAB Prov: AMBROSE CRISTOBAL APRN 07/22/19 Problem Qualifiers AMBROSE CRISTOBAL APRN Jul 22, 2019 14:37
[2019-07-22 14:41] LABS: BILIRUBIN,URINE NEGATIVE (NEG); CLARITY,URINE CLEAR; COLOR,URINE YELLOW; NITRITE,URINE NEGATIVE (NEG); PROTEIN,URINE NEGATIVE (NEG-TRACE)
[2019-07-22] MEDS ORDERED: HYDROcodone/APAP 5/325MG 1 TAB TABLET PO ONE (14:45)
[2019-07-22] MEDS ORDERED: PHENAZOPYRIDINE 200 MG TABLET. PO ONE (14:45)
[2019-07-22 14:51] LABS: BACTERIA,URINE MODERATE /HPF (0-FEW); RBC,URINE 0 /HPF (0-2); SQUAMOUS EPITHELIAL CELL,UR MANY /LPF; WBC,URINE OCC /HPF (0-4)
[2019-07-22 14:56] LABS: BASO % 0 % (0-3); EOS # 0.3 x10^3/uL (0.0-0.7); EOS % 3 % (0-3); HEMATOCRIT 36.9 % (36.0-47.0); HEMOGLOBIN 12.4 g/dL (12.0-15.5); LYMPH # 1.8 x10^3/uL (1.0-4.8); LYMPH % 21 % (24-48); MEAN CORPUSCULAR HEMOGLOBIN 29 pg (25-35); MEAN CORPUSCULAR HGB CONC 34 g/dL (31-37); MEAN CORPUSCULAR VOLUME 86 fL (79-100); MONO # 1.1 x10^3/uL (0.0-1.1); MONO % 13 % (0-9); NEUT # 5.3 x10^3/uL (1.8-7.7); NEUT % 62 % (31-73); PLATELET COUNT 234 x10^3/uL (140-400); RED BLOOD COUNT 4.31 x10^6/uL (3.50-5.40); RED CELL DISTRIBUTION WIDTH 14.3 % (11.5-14.5); WHITE BLOOD COUNT 8.5 x10^3/uL (4.0-11.0)
[2019-07-22 14:59] LABS: U PREG PATIENT NEGATIVE (NEG)
[2019-07-22 15:10] LABS: CALCIUM 8.7 mg/dL (8.5-10.1); GFR 75.9; POTASSIUM 3.7 mmol/L (3.5-5.1)
[2019-07-22 15:16] LABS: ALBUMIN 3.2 g/dL (3.4-5.0); ALBUMIN/GLOBULIN RATIO 0.8 (1.0-1.7); TOTAL BILIRUBIN 0.1 mg/dL (0.2-1.0); TOTAL PROTEIN 7.1 g/dL (6.4-8.2)
[2019-07-22 15:28] LABS: AMPHETAMINE/METHAMPHETAMINE POS (NEG); BARBITURATES NEG (NEG); BENZODIAZEPINES NEG (NEG); CANNABINOIDS POS (NEG); COCAINE POS (NEG); METHADONE NEG (NEG); OPIATES NEG (NEG); PHENCYCLIDINE NEG (NEG)
[2019-07-22] MEDS ORDERED: PENI500T PO (15:34)
--- NOTE | 2019-07-22 16:05 | RAD ---
EXAM: Abdomen and pelvis CT without intravenous contrast. HISTORY: Costovertebral angle tenderness. TECHNIQUE: Computed tomographic images of the abdomen and pelvis were obtained without contrast. Multiplanar reformatting was performed. *One or more of the following individualized dose reduction techniques were utilized for this examination: 1. Automated exposure control. 2. Adjustment of the mA and/or kV according to patient size. 3. Use of iterative reconstruction technique. COMPARISON: 05/14/2019. FINDINGS: Evaluation of the lower thorax demonstrates no infiltrate or pleural effusion. The heart is normal in size. No hepatic lesion is seen on this noncontrast exam. There is a hepatic granuloma. The gallbladder is surgically absent. The pancreas, spleen and adrenal glands are unremarkable. There is no evidence of nephroureterolithiasis or hydronephrosis. There are few pelvic phleboliths. There is no evidence of appendicitis. There is colonic diverticulosis. There is no evidence of diverticulitis. The bladder and uterus are unremarkable. There are fallopian tube closure devices within the peritoneal cavity. These are separate from the fallopian tubes. There is no suspicious osseous lesion. IMPRESSION: 1. No convincing acute abdominal or pelvic finding. 2. Colonic diverticulosis. 3. Displaced fallopian tube closure devices. These are not associated with the fallopian tubes. Electronically signed by: Milly Ackerman MD (07/22/2019 4:02 PM) [facility]
[2019-07-22 16:25] VITALS: BP 115/60
== END 2019-07-22 16:25 | disposition home or self-care (01) ==
LOC: ER 14:00
DX: R30.0 Dysuria (principal); K08.89 Other specified disorders of teeth and supporting structures; R10.30 Lower abdominal pain, unspecified; F32.9 Major depressive disorder, single episode, unspecified; Z90.49 Acquired absence of other specified parts of digestive tract; Z98.51 Tubal ligation status; F12.90 Cannabis use, unspecified, uncomplicated; F15.90 Other stimulant use, unspecified, uncomplicated; Z88.2 Allergy status to sulfonamides; Z98.890 Other specified postprocedural states
CPT/HCPCS: 36415; 74176; 80053; 80307; 81001; 81025; 85025; 87086; 99285

== ENCOUNTER 2019-10-16 20:42 | Emergency (ER) | payer OTHER ==
[~2019-10-16] VITALS: Ht 160 cm; Wt 61.5 kg
[~2019-10-16 20:42] MED LIST changes: +PENI500T PO
[2019-10-16 23:04] LABS: BILIRUBIN,URINE NEGATIVE (NEG); CLARITY,URINE CLEAR; COLOR,URINE YELLOW; NITRITE,URINE POSITIVE (NEG); PROTEIN,URINE NEGATIVE (NEG-TRACE); UROBILINOGEN,URINE 0.2 mg/dL (0.2 mg/dL)
[2019-10-16 23:07] LABS: RBC,URINE 0 /HPF (0-2)
[2019-10-16 23:08] LABS: BACTERIA,URINE MANY /HPF (0-FEW); SQUAMOUS EPITHELIAL CELL,UR MOD /LPF
[2019-10-16] MEDS ORDERED: AMOX1TAB61 PO (23:22)
[2019-10-16] MEDS ORDERED: PHEN100T82 PO (23:22)
--- NOTE | 2019-10-16 23:22 | PHYS DOC ---
Past Medical History Past Medical History: Bipolar Past Surgical History: No Surgical History Additional Past Surgical Histo: Conization Smoking Status: Current Every Day Smoker Alcohol Use: None Drug Use: Marijuana, Methamphetamine, Phencyclidine General Adult EDM: Chief Complaint: PAIN ON URINATION HPI: HPI: Patient is a 39 year old female who presents with complaint of burning with urination with foul smell to urine. Patient also complains of pressure behind her eyes that causes her eyes to tear up. She also indicates that she has a lot of pressure around the nose and congestion. She denies any fever. She denies any chest pain or shortness of breath. She does indicate that she has had purulent nasal drainage.[] Review of Systems: Review of Systems: Constitutional: Denies fever or chills. [] Respiratory: Denies cough or shortness of breath. [] Cardiovascular: Denies chest pain or edema. [] GI: Denies abdominal pain, nausea, vomiting or diarrhea. [] : Complains of dysuria. [] Neurologic: Complains of headache without focal weakness or sensory changes. [] Heart Score: Risk Factors: Risk Factors: DM, Current or recent (<one month) smoker, HTN, HLP, family history of CAD, obesity. Risk Scores: Score 0 - 3: 2.5% MACE over next 6 weeks - Discharge Home Score 4 - 6: 20.3% MACE over next 6 weeks - Admit for Clinical Observation Score 7 - 10: 72.7% MACE over next 6 weeks - Early Invasive Strategies Allergies: Allergies: Allergies Coded Allergies Type Severity Reaction Last Updated Verified Sulfa (Sulfonamide Antibiotics) Allergy Severe Swelling 05/14/19 Yes Physical Exam: PE: Constitutional: Well developed, well nourished, no acute distress, non-toxic appearance. [] HENT: Normocephalic, atraumatic, with bilateral maxillary sinus tenderness, oropharynx moist, no oral exudates, nose normal. [] Eyes: PERRLA, EOMI, conjunctiva normal, no discharge. [] Cardiovascular:Heart rate regular rhythm, no murmur [] Lungs & Thorax: Bilateral breath sounds clear to auscultation [] Neurologic: Alert and oriented X 3, no focal deficits noted. [] Current Patient Data: Labs: Laboratory Tests Test 10/16/19 22:30 10/16/19 22:58 Urine Collection Type Unknown Urine Color Yellow Urine Clarity Clear Urine pH 7.0 (<5.0-8.0) Urine Specific [place] >=1.030 (1.000-1.030) Urine Protein Negative mg/dL (NEG-TRACE) Urine Glucose (UA) Negative mg/dL (NEG) Urine Ketones (Stick) Negative mg/dL (NEG) Urine Blood Negative (NEG) Urine Nitrite Positive (NEG) Urine Bilirubin Negative (NEG) Urine Urobilinogen Dipstick 0.2 mg/dL (0.2 mg/dL) Urine Leukocyte Esterase Negative (NEG) Urine RBC 0 /HPF (0-2) Urine WBC 1-4 /HPF (0-4) Urine Squamous Epithelial Cells Mod /LPF Urine Bacteria Many /HPF (0-FEW) POC Urine HCG, Qualitative Hcg negative (Negative) Vital Signs: Vital Signs Date Time Temp Pulse Resp B/P (MAP) Pulse Ox O2 Delivery O2 Flow Rate FiO2 10/16/19 22:26 98.7 98 16 133/85 (101) 97 Room Air 98.7 EKG: EKG: [] Radiology/Procedures: Radiology/Procedures: [] Course & Med Decision Making: Course & Med Decision Making Pertinent Labs and Imaging studies reviewed. (See chart for details) [] Dragon Disclaimer: Dragon Disclaimer: This electronic medical record was generated, in whole or in part, using a voice recognition dictation system. Departure Departure Impression: Primary Impression: Urinary tract infection Qualified Codes: N39.0 - Urinary tract infection, site not specified Additional Impression: Acute sinusitis Qualified Codes: J01.00 - Acute maxillary sinusitis, unspecified Disposition: HOME, SELF-CARE Condition: STABLE Referrals: NO PCP (PCP) Patient Instructions: Sinusitis, Urinary Tract Infection Scripts Phenazopyridine Hcl (PYRIDIUM) 100 Mg Tablet 1 TAB PO TID PRN for URINARY PAIN for 3 Days, #9 TAB 0 Refills Prov: JOYCE SAHU Jr. DO 10/16/19 Amoxicillin/Potassium Clav (AUGMENTIN 875-125 TABLET) 1 Each Tablet 1 TAB PO BID for 10 Days, #20 TAB 0 Refills Prov: JOYCE SAHU Jr. DO 10/16/19 JOYCE SAHU Jr. DO Oct 16, 2019 23:22
[2019-10-16 23:31] VITALS: BP 132/85
[2019-10-16] MEDS ORDERED: AMOXICILLIN/K CLAV 875/125MG TABLET. PO ONE (23:45)
== END 2019-10-16 23:30 | disposition home or self-care (01) ==
LOC: ER 20:42
DX: N39.0 Urinary tract infection, site not specified (principal); J01.00 Acute maxillary sinusitis, unspecified; F31.9 Bipolar disorder, unspecified; F17.200 Nicotine dependence, unspecified, uncomplicated; Z88.2 Allergy status to sulfonamides
CPT/HCPCS: 81001; 81025; 87086; 99283

== ENCOUNTER 2020-03-28 02:49 | Emergency (ER) | payer OTHER ==
[~2020-03-28] VITALS: Ht 160 cm; Wt 100.0 kg
[~2020-03-28 02:49] MED LIST changes: +AMOX1TAB61 PO; +PHEN100T82 PO
[2020-03-28 03:19] LABS: BILIRUBIN,URINE NEGATIVE (NEG); CLARITY,URINE CLEAR; COLOR,URINE YELLOW; NITRITE,URINE NEGATIVE (NEG); PROTEIN,URINE NEGATIVE (NEG-TRACE); UROBILINOGEN,URINE 0.2 mg/dL (0.2 mg/dL)
[2020-03-28] MEDS ORDERED: ACETAMINOPHEN 500 MG TABLET PO ONE (03:30)
[2020-03-28 03:55] LABS: RBC,URINE TNTC /HPF (0-2)
[2020-03-28 03:56] LABS: BACTERIA,URINE MOD /HPF (0-FEW)
[2020-03-28 04:12] LABS: BASO # 0.1 x10^3/uL (0.0-0.2); BASO % 1 % (0-3); EOS # 0.2 x10^3/uL (0.0-0.7); EOS % 3 % (0-3); HEMATOCRIT 37.2 % (36.0-47.0); HEMOGLOBIN 12.3 g/dL (12.0-15.5); LYMPH # 2.7 x10^3/uL (1.0-4.8); LYMPH % 28 % (24-48); MEAN CORPUSCULAR HEMOGLOBIN 29 pg (25-35); MEAN CORPUSCULAR HGB CONC 33 g/dL (31-37); MEAN CORPUSCULAR VOLUME 86 fL (79-100); MONO # 0.9 x10^3/uL (0.0-1.1); MONO % 9 % (0-9); NEUT # 5.5 x10^3/uL (1.8-7.7); NEUT % 59 % (31-73); PLATELET COUNT 243 x10^3/uL (140-400); RED BLOOD COUNT 4.32 x10^6/uL (3.50-5.40); RED CELL DISTRIBUTION WIDTH 14.4 % (11.5-14.5); WHITE BLOOD COUNT 9.4 x10^3/uL (4.0-11.0)
[2020-03-28 04:26] LABS: CALCIUM 8.6 mg/dL (8.5-10.1); CREATININE 0.8 mg/dL (0.6-1.0); GFR 97.7; POTASSIUM 3.9 mmol/L (3.5-5.1)
[2020-03-28 05:36] LABS: U PREG PATIENT NEGATIVE (NEG)
--- NOTE | 2020-03-28 05:46 | RAD ---
Complete transvaginal pelvic ultrasound HISTORY: 39-year-old female with vaginal bleeding. FINDINGS: Transabdominal imaging demonstrates very limited visualization of uterus and ovaries due to bowel gas shadowing. Transvaginal imaging demonstrates anteverted uterus measuring 9.3 x 4.7 x 4.5 cm. There is heterogeneous echogenicity of the endometrium, the endometrial thickness the fundus is 1.0 cm, some cystic spaces of the endometrium at the lower uterine segment are also present. The junctional zone between the endometrium and inner myometrium is indistinct. At the anterior wall of the uterus there is a 0.8 cm hypoechoic focus which could be a cyst or small leiomyoma. Left ovary measures 1.6 x 2.1 x 1.4 cm. Right ovary measures 2.0 x 2.0 x 2.2 cm. There is intact bilateral ovarian blood flow. Inferior of the right ovary the second rigger measures a oval 1 3 x 1.0 x 1.3 cm round focus surrounded by mild volume of pelvic free fluid. It is uncertain if this is a paraovarian mass or of this represents a segment of small bowel. IMPRESSION: 1. Heterogeneous echogenicity of the endometrium with small cystic spaces with a thickness of 1.0 cm. The junctional zone between the endometrium and inner myometrium is indistinct, and there is a 0.8 cm hypoechoic focus of the anterior wall of the uterus which could be a small cyst or leiomyoma. These changes of the endometrium and junctional zone could indicate adenomyosis. Endometrial hyperplasia or early carcinoma cannot be excluded, although no abnormal expansion of the endometrium is present to otherwise suggest this. Further evaluation with gynecologic examination and/or endometrial biopsy and/or MR imaging could be considered. 2. Adjacent of the right ovary there is a 1.3 cm oval hypoechoic focus measured by the second rigger. It is possible this represents a segment of small bowel although a paraovarian mass is not excluded. 3. Small volume of pelvic free fluid. Electronically signed by: Zachariah Michael MD (03/28/2020 5:43 AM) [facility]
--- NOTE | 2020-03-28 05:52 | PHYS DOC ---
Past Medical History Past Medical History: Bipolar Past Surgical History: Cholecystectomy, Tubal ligation Additional Past Surgical Histo: Conization Smoking Status: Current Every Day Smoker Alcohol Use: None Drug Use: Marijuana, Methamphetamine, Phencyclidine General Adult EDM: Chief Complaint: ABDOMINAL PAIN HPI: HPI: Patient is a 39-year-old female presents to the emergency room complaining of lower abdominal pain and vaginal bleeding. Patient states she has not had a p eriod in the last 2 years. She is not seen CUSTOMER SUPPORT ADVISOR for this. She does have a tubal ligation and denies any chance of being . She states that 2 days ago she started having heavy vaginal bleeding. She is gone through 18 tampons in the last 3 days. She denies any shortness of breath, chest pain, dizziness, syncope. She is having severe sharp abdominal pain. She states she cannot tell whether or not it is cramping. She denies any vaginal discharge. Review of Systems: Review of Systems: Negative other than noted Heart Score: Risk Factors: Risk Factors: DM, Current or recent (<one month) smoker, HTN, HLP, family hi story of CAD, obesity. Risk Scores: Score 0 - 3: 2.5% MACE over next 6 weeks - Discharge Home Score 4 - 6: 20.3% MACE over next 6 weeks - Admit for Clinical Observation Score 7 - 10: 72.7% MACE over next 6 weeks - Early Invasive Strategies Current Medications: Current Medications Medications (Trade) Dose Ordered Sig/Yanni Start Time Stop Time Status Last Admin Dose Admin Acetaminophen (Tylenol) 1,000 mg 1X ONCE 03/28/20 03:30 03/28/20 03:35 DC 03/28/20 03:49 1,000 MG Allergies: Allergies: Allergies Coded Allergies Type Severity Reaction Last Updated Verified Sulfa (Sulfonamide Antibiotics) Allergy Severe Swelling 05/14/19 Yes I S O L A T I O N *CONTACT* Allergy Unknown 10/21/19 Yes Physical Exam: PE: General: Awake, alert, NAD. Well Nourished, well hydrated. Cooperative HEENT: Atraumatic, EOMI, PERRL, airway patent, moist oral mucosa Neck: Supple, trachea midline Respiratory: CTA bilaterally, normal effort, no wheezing/crackles CV: RRR, no murmur, cap refill <2 GI: Soft, nondistended, nontender, no masses MSK: No obvious deformities Skin: Warm, dry, intact Neuro: A&O x3, speech NL, sensory and motor grossly intact, no focal deficits Psych: Normal affect, normal mood, not suicidal or homicidal Current Patient Data: Labs: Laboratory Tests Test 03/28/20 03:00 03/28/20 03:07 Urine Collection Type Unknown Urine Color Yellow Urine Clarity Clear Urine pH 5.0 (<5.0-8.0) Urine Specific [place] 1.025 (1.000-1.030) Urine Protein Negative mg/dL (NEG-TRACE) Urine Glucose (UA) Negative mg/dL (NEG) Urine Ketones (Stick) Negative mg/dL (NEG) Urine Blood Large (NEG) Urine Nitrite Negative (NEG) Urine Bilirubin Negative (NEG) Urine Urobilinogen Dipstick 0.2 mg/dL (0.2 mg/dL) Urine Leukocyte Esterase Negative (NEG) Urine RBC Tntc /HPF (0-2) Urine WBC 1-4 /HPF (0-4) Urine Squamous Epithelial Cells Few /LPF Urine Bacteria Mod /HPF (0-FEW) Urine Test Negative (NEG) White Blood Count 9.4 x10^3/uL (4.0-11.0) Red Blood Count 4.32 x10^6/uL (3.50-5.40) Hemoglobin 12.3 g/dL (12.0-15.5) Hematocrit 37.2 % (36.0-47.0) Mean Corpuscular Volume 86 fL (79-100) Mean Corpuscular Hemoglobin 29 pg (25-35) Mean Corpuscular Hemoglobin Concent 33 g/dL (31-37) Red Cell Distribution Width 14.4 % (11.5-14.5) Platelet Count 243 x10^3/uL (140-400) Neutrophils (%) (Auto) 59 % (31-73) Lymphocytes (%) (Auto) 28 % (24-48) Monocytes (%) (Auto) 9 % (0-9) Eosinophils (%) (Auto) 3 % (0-3) Basophils (%) (Auto) 1 % (0-3) Neutrophils # (Auto) 5.5 x10^3/uL (1.8-7.7) Lymphocytes # (Auto) 2.7 x10^3/uL (1.0-4.8) Monocytes # (Auto) 0.9 x10^3/uL (0.0-1.1) Eosinophils # (Auto) 0.2 x10^3/uL (0.0-0.7) Basophils # (Auto) 0.1 x10^3/uL (0.0-0.2) Sodium Level 136 mmol/L (136-145) Potassium Level 3.9 mmol/L (3.5-5.1) Chloride Level 104 mmol/L (98-107) Carbon Dioxide Level 27 mmol/L (21-32) Anion Gap 5 (6-14) L Blood Urea Nitrogen 10 mg/dL (7-20) Creatinine 0.8 mg/dL (0.6-1.0) Estimated GFR (Cockcroft-Gault) 97.7 Glucose Level 124 mg/dL (70-99) H Calcium Level 8.6 mg/dL (8.5-10.1) Laboratory Tests 03/28/20 03:07 Laboratory Tests 03/28/20 03:07 Vital Signs: Vital Signs Date Time Temp Pulse Resp B/P (MAP) Pulse Ox O2 Delivery O2 Flow Rate FiO2 03/28/20 04:30 64 136/69 (91) 99 Room Air 03/28/20 03:00 14 03/28/20 02:53 97.5 97.5 EKG: EKG: [] Radiology/Procedures: Radiology/Procedures: [] Course & Med Decision Making: Course & Med Decision Making Pertinent Labs and Imaging studies reviewed. (See chart for details) Patient is 39-year-old female who presents to the emergency room with pelvic pain and vaginal bleeding. Urine test is negative. This is likely dysfunctional uterine bleeding. Ultrasound was done and does not show a large mass. I recommended based off of her ultrasound results that she follow-up with CUSTOMER SUPPORT ADVISOR in the next week or 2 for further evaluation. We discussed the symptoms of anemia and when to return to the emergency room. She was given Tylenol for pain here in the emergency room. Patient's test results and vitals while in the ED were fully reviewed and discussed with the patient. Patient is stable and at this time does not need admission to the hospital. We have discussed strict return precautions and the importance of following up with their Primary Care Physician. Patient stated understanding and was given an opportunity to ask any questions. Patient is in agreement with plan. Diyaon Disclaimer: Dragon Disclaimer: This electronic medical record was generated, in whole or in part, using a voice recognition dictation system. Departure Departure Impression: Primary Impression: Adenomyosis Additional Impression: Dysfunctional uterine bleeding Disposition: HOME, SELF-CARE Condition: STABLE Referrals: NO PCP (PCP) AGNES MOSELEY Jr, MD Patient Instructions: Uterine Bleeding, Dysfunctional MANUEL BONE MD Mar 28, 2020 05:52
[2020-03-28 06:44] VITALS: BP 102/55
== END 2020-03-28 07:25 | disposition home or self-care (01) ==
LOC: ER 02:49
DX: N93.8 Other specified abnormal uterine and vaginal bleeding (principal); F31.9 Bipolar disorder, unspecified; F17.200 Nicotine dependence, unspecified, uncomplicated; Z90.49 Acquired absence of other specified parts of digestive tract; Z98.51 Tubal ligation status; Z88.2 Allergy status to sulfonamides; Z91.041 Radiographic dye allergy status
CPT/HCPCS: 36415; 76856; 80048; 81001; 81025; 85025; 99285-25

== ENCOUNTER 2020-05-28 01:19 | Emergency (ER) | payer OTHER ==
[~2020-05-28] VITALS: Ht 160 cm; Wt 65.9 kg
[2020-05-28 01:40] VITALS: BP 118/67
--- NOTE | 2020-05-28 01:56 | PHYS DOC ---
Past Medical History Past Medical History: Bipolar Past Surgical History: Cholecystectomy, Tubal ligation Additional Past Surgical Histo: Conization Smoking Status: Current Every Day Smoker Alcohol Use: None Drug Use: Marijuana, Methamphetamine, Phencyclidine General Adult EDM: Chief Complaint: COUGH HPI: HPI: Patient is a 39 year old female presents with viral type symptoms including cough, sore throat, and nasal congestion x 3-4 days. Reports worse over the last 2 days. Denies known sick contacts. Denies known exposure to COVID-19. Denies . Reports history of tubal ligation. Patient reports she has not yet received the flu shot this year. Patient does report history of smoking. Review of Systems: Review of Systems: Constitutional: Denies fever or chills Eyes: Denies redness or eye pain HENT: Reports nasal congestion and sore throat Respiratory: Reports cough Cardiovascular: Denies chest pain or palpitations GI: Denies abdominal pain, nausea, or vomiting : Denies dysuria or hematuria Musculoskeletal: Denies back pain or joint pain Integument: Denies rash or skin lesions Neurologic: Denies headache, focal weakness or sensory changes Complete systems were reviewed and found to be within normal limits, except as documented in this note. Current Medications: Current Medications Medications (Trade) Dose Ordered Sig/Yanni Start Time Stop Time Status Last Admin Dose Admin Dexamethasone (Decadron) 10 mg 1X ONCE 05/28/20 02:00 05/28/20 02:01 Allergies: Allergies: Allergies Coded Allergies Type Severity Reaction Last Updated Verified Sulfa (Sulfonamide Antibiotics) Allergy Severe Swelling 05/14/19 Yes I S O L A T I O N *CONTACT* Allergy Unknown 10/21/19 Yes Physical Exam: PE: Constitutional: Well developed, well nourished, no acute distress, non-toxic appearance HENT: Normocephalic, atraumatic, pharynx erythematous without exudate, clear nasal discharge noted, TMs clear. Eyes: PERRL, EOMI, conjunctiva normal, no discharge Neck: Normal range of motion, no tenderness, supple, no meningeal signs Lungs & Thorax: No respiratory distress, equal chest rise and fall Skin: Warm, dry, no erythema, no rash Back: No tenderness, no CVA tenderness Extremities: No tenderness, ROM intact, no edema Neurologic: Alert and oriented X 3, no focal deficits noted Psychologic: Affect normal, judgment normal Current Patient Data: Vital Signs: Vital Signs Date Time Temp Pulse Resp B/P (MAP) Pulse Ox O2 Delivery O2 Flow Rate FiO2 05/28/20 01:19 98.1 106 20 100 Room Air 98.1 EKG: EKG: [] Radiology/Procedures: Radiology/Procedures: PROCEDURE: CHEST AP ONLY CHEST AP ONLY History: Reason: cough / Spl. Instructions: / History: Comparison: November 23, 2017 Findings: Patchy left basilar opacity. No pneumothorax. No pleural effusion. Normal heart size. Impression: 1. Patchy left basilar opacity, may represent atelectasis or consolidation including viral pneumonia. Electronically signed by: Smith Eden DO (05/28/2020 2:24 AM) [facility] Course & Med Decision Making: Course & Med Decision Making Pertinent Labs and Imaging studies reviewed. (See chart for details) Patient presents with viral type symptoms including sore throat and cough. Symptomatic treatment provided with oral steroid. Rapid strep negative. Rapid influenza also negative. PERC negative. COVID-[address] COVID-19 testing pending. Chest x-ray with findings concerning for viral pneumonia. Rx for azithromycin provided. Patient stable for discharge with outpatient follow-up with PCP. Discussed findings and plan with patient, who acknowledges understanding and agreement. COVID-19 CRITERIA: The patient was evaluated during the global COVID-19 pandemic, and that diagnosis was suspected/considered upon their initial presentation. Their evaluation, treatment and testing was consistent with current guidelines for patients who present with complaints or symptoms that may be related to COVID-19. Em Disclaimer: Em Disclaimer: This electronic medical record was generated, in whole or in part, using a voice recognition dictation system. Departure Departure Impression: Primary Impression: Suspected COVID-19 virus infection Disposition: DC HOME SELF CARE/HOMELESS Condition: STABLE Referrals: NO PCP (PCP) Patient Instructions: Viral Syndrome Additional Instructions: You have been tested for or diagnosed with COVID-19. It is an infection caused b y a new type of coronavirus. COVID-19 will cause cold-like or mild flu symptoms in most. It can cause more severe symptoms like problems breathing in some. There is no treatment for COVID-19. The body will clear the infection over time. Self-care will help to ease discomfort. Steps to Take: Self-Care Rest as needed. Healthy habits may help you feel better. Steps include: Choose healthy foods including fruits and vegetables. Drink water throughout the day. Get plenty of sleep each night. If you smoke, try to quit. It may ease breathing. Avoid alcohol. Keep Others Healthy The virus can spread to others. Droplets are released every time you sneeze or cough. The droplets can get into the mouth, nose, or eyes of people near you and lead to infection. To lower the chances of spreading COVID-19 to others: Stay at home until your doctor has said it is safe to leave. If you tested po sitive this will mean staying isolated until both of the following are true: At least 7 days have passed since the start of illness. You are free of fever for at least 72 hours without the use of medicine. During this time: - Avoid public areas, events, or transportation. Do not return to work or school until your doctor has said it is safe to do so. - Call ahead if you need to go to a medical center. Let them know you may have COVID-19. It will help them guide you where to go. They may also ask you to wear a facemask when you come to the office. - If you call for emergency medical services, let them know you may have COVID- 19. While at home: - Try to avoid close contact with others. Stay about 6 feet away. - If possible, spend most of your time in a separate room from others. - Use a face mask if you will be in close contact with others such as sharing a room or vehicle. - Have someone wipe down common surfaces in the home. Use household steward/stewardess chief cargo vessel every day on areas like doorknobs, counters, or sinks. - Cough or sneeze into a tissue. Throw the tissue away right after use. If a tissue is not available, cough or sneeze into your elbow. - Wash your hands often. Wash them after sneezing or coughing. Use soap and water and wash for at least 20 seconds. Alcohol based hand drum cleaner can be used if soap and water is not available. - Do not prepare food for others. Avoid sharing personal items like forks, spoons, or toothbrushes. - Avoid close contact with pets while you are sick. There is no evidence of the virus passing to pets. This is a safety step until more is known about this virus. Isolation can be frustrating. Social interaction can help. Keep in touch with friends and family through phone and tech options. You can still interact with others in your home, just keep a safe distance of about 6 feet. Follow-up: Your doctors office will check in with you to see if there are any changes in your health. You may be asked to keep track of symptoms to share with them. They will also let you know when you are clear to be in public again. Problems to Look Out For: Contact your doctor if your recovery is not going as you expect. Get emergency care if you have problems such as: - Trouble breathing - Nonstop chest pain or pressure - Changes in awareness, confusion, or problems waking - Lips or face have bluish color - Worsening of symptoms If you think you have an emergency, call for emergency medical services right away. As taken from [facility] Azithromycin (ZITHROMAX) 250 Mg Tablet 1 PKG PO UD, #6 TAB Take 2 tablets on day 1 and then 1 tablet each day for the next 4 days as directed Prov: DAMION SERVIN DO 05/28/20 PERC Rule for PE PERC Rule for PE PERC Rule for PE Response (Comments) Value Age > 50: No 0 HR > 100: No 0 Sa02 on room air <95%: No 0 Unilateral leg swelling: No 0 Hemoptysis: No 0 Recent surgery or trauma: No 0 Prior PE or DVT: No 0 Hormone use: No 0 Total 0 COVID-19 Assessment: COVID-19 Patient Risks: Age 65 or older: No Sign of co-morbidity: No Exp to person + for COVID: No Exp to PUI: No Travel from affected area: No Lower respiratory symptoms: Yes Fever: No Other: Yes PPE Use: Full PPE with N95 mask or PAPR: Yes DAMION SERVIN DO May 28, 2020 01:55
[2020-05-28] MEDS ORDERED: DEXAMETHASONE 4 MG TABLET PO ONE (02:00)
[2020-05-28 02:26] LABS: INFLUENZA A PATIENT NEGATIVE (NEGATIVE); INFLUENZA B PATIENT NEGATIVE (NEGATIVE)
--- NOTE | 2020-05-28 02:27 | RAD ---
CHEST AP ONLY History: Reason: cough / Spl. Instructions: / History: Comparison: November 23, 2017 Findings: Patchy left basilar opacity. No pneumothorax. No pleural effusion. Normal heart size. Impression: 1. Patchy left basilar opacity, may represent atelectasis or consolidation including viral pneumonia. Electronically signed by: Smith Eden DO (05/28/2020 2:24 AM) [facility] [place]
[2020-05-28] MEDS ORDERED: AZIT250T PO (02:35)
== END 2020-05-28 02:43 | disposition home or self-care (01) ==
LOC: ER 01:19
DX: R05 Cough (principal); J02.9 Acute pharyngitis, unspecified; R09.81 Nasal congestion; Z20.828 Contact with and (suspected) exposure to other viral communicable diseases; F31.9 Bipolar disorder, unspecified; F17.200 Nicotine dependence, unspecified, uncomplicated; Z88.2 Allergy status to sulfonamides; Z91.041 Radiographic dye allergy status
CPT/HCPCS: 71045; 87070; 87804; 87880; 99284; C9803; U0003

== ENCOUNTER 2020-09-08 04:50 | Emergency (ER) | payer OTHER ==
[~2020-09-08] VITALS: Ht 160 cm; Wt 63.6 kg
[~2020-09-08 04:50] MED LIST changes: +AZIT250T PO
[2020-09-08] MEDS ORDERED: AZIT250T PO (05:43)
--- NOTE | 2020-09-08 05:43 | PHYS DOC ---
Past Medical History Past Medical History: Bipolar Past Surgical History: Cholecystectomy, Tubal ligation Additional Past Surgical Histo: Conization Smoking Status: Current Every Day Smoker Alcohol Use: None Drug Use: Marijuana, Methamphetamine, Phencyclidine General Adult EDM: Chief Complaint: Congestion HPI: HPI: Patient is a 40 year old male who is on no prescription medications presents with a 1 week history of congestion. Patient states she thinks she has a staph infection. Patient states she feels left as if something is in her nose and she cannot get it out. Patient denies any fever chills runny nose stuffy nose or cough. Review of Systems: Review of Systems: Constitutional: Denies fever or chills. [] Eyes: Denies change in visual acuity. [] HENT: positve nasal congestion no sore throat. [] Respiratory: Denies cough or shortness of breath. [] Cardiovascular: Denies chest pain or edema. [] GI: Denies abdominal pain, nausea, vomiting, bloody stools or diarrhea. [] : Denies dysuria. [] Musculoskeletal: Denies back pain or joint pain. [] Integument: Denies rash. [] Neurologic: Denies headache, focal weakness or sensory changes. [] Endocrine: Denies polyuria or polydipsia. [] Lymphatic: Denies swollen glands. [] Psychiatric: Denies depression or anxiety. [] Heart Score: C/O Chest Pain: No Risk Factors: Risk Factors: DM, Current or recent (<one month) smoker, HTN, HLP, family history of CAD, obesity. Risk Scores: Score 0 - 3: 2.5% MACE over next 6 weeks - Discharge Home Score 4 - 6: 20.3% MACE over next 6 weeks - Admit for Clinical Observation Score 7 - 10: 72.7% MACE over next 6 weeks - Early Invasive Strategies Allergies: Allergies: Allergies Coded Allergies Type Severity Reaction Last Updated Verified Sulfa (Sulfonamide Antibiotics) Allergy Severe Swelling 05/14/19 Yes I S O L A T I O N *CONTACT* Allergy Unknown 10/21/19 Yes Physical Exam: PE: Constitutional: Well developed, well nourished, no acute distress, non-toxic appearance. [] HENT: Normocephalic, atraumatic, bilateral external ears normal, oropharynx moist, no oral exudates, dry skin lateral nose bilateral, no drainage no nasal passages patent [] Eyes: PERRLA, EOMI, conjunctiva normal, no discharge. [] Neck: Normal range of motion, no tenderness, supple, no stridor. [] Cardiovascular:Heart rate regular rhythm, no murmur [] Lungs & Thorax: Bilateral breath sounds clear to auscultation [] Abdomen: Bowel sounds normal, soft, no tenderness, no masses, no pulsatile masses. [] Skin: Warm, dry, no erythema, no rash. [] Back: No tenderness, no CVA tenderness. [] Extremities: No tenderness, no cyanosis, no clubbing, ROM intact, no edema. [] Neurologic: Alert and oriented X 3, normal motor function, normal sensory function, no focal deficits noted. [] Psychologic: Affect normal, judgement normal, mood normal. [] EKG: EKG: [] Radiology/Procedures: Radiology/Procedures: [] Course & Med Decision Making: Course & Med Decision Making Pertinent Labs and Imaging studies reviewed. (See chart for details) [] Dragon Disclaimer: Dragon Disclaimer: This electronic medical record was generated, in whole or in part, using a voice recognition dictation system. Departure Departure Impression: Primary Impression: Nasal congestion Disposition: 01 DC HOME SELF CARE/HOMELESS Condition: STABLE Referrals: NO PCP (PCP) Patient Instructions: Sinusitis Scripts Azithromycin (ZITHROMAX) 250 Mg Tablet 1 PKG PO UD, #6 TAB Prov: RASHEEDA THOMAS DO 09/08/20 RASHEEDA THOMAS DO Sep 08, 2020 05:43
[2020-09-08 05:57] VITALS: BP 120/68
== END 2020-09-08 05:58 | disposition home or self-care (01) ==
LOC: ER 04:50
DX: R09.81 Nasal congestion (principal); F31.9 Bipolar disorder, unspecified; F17.200 Nicotine dependence, unspecified, uncomplicated; F12.90 Cannabis use, unspecified, uncomplicated; F19.90 Other psychoactive substance use, unspecified, uncomplicated; Z90.49 Acquired absence of other specified parts of digestive tract; Z98.51 Tubal ligation status; Z98.890 Other specified postprocedural states; Z88.2 Allergy status to sulfonamides; Z88.8 Allergy status to other drugs, medicaments and biological substances
CPT/HCPCS: 99283

== ENCOUNTER 2021-08-06 05:33 | Emergency (ER) | payer OTHER ==
[~2021-08-06] VITALS: Ht 160 cm; Wt 88.1 kg
--- NOTE | 2021-08-06 05:58 | PHYS DOC ---
Past Medical History Past Medical History: Bipolar Additional Past Medical Histor: SALIVATORY STONES (HARRIET ATKINSON DO) Past Surgical History: Cholecystectomy, Tubal ligation Additional Past Surgical Histo: Conization (HARRIET ATKINSON DO) Smoking Status: Current Every Day Smoker Alcohol Use: None Drug Use: Marijuana, Methamphetamine, Phencyclidine (HARRIET ATKINSON DO) General Adult EDM: Chief Complaint: NECK PAIN HPI: HPI: Patient is a 40 year old female who presents here with right-sided neck pain and right-sided submandibular swelling and pain. She reports that she had some mild discomfort over the last few days, but she has had increasing sensation of swelling and pain this morning, and when she awoke shortly prior to arrival, she noticed that she had difficulty opening her jaw, painful swallowing. No voice changes, she is able to control secretions. She denies chest pain or dyspnea. She denies fevers or chills. Denies any neck trauma or injury. She indicates that previous history of sialadenitis, without any specific intervention or treatment previously. (HARRIET ATKINSON DO) Review of Systems: Review of Systems: SubmentalConstitutional: Denies fever or chills. [] Eyes: Denies change in visual acuity. [] HENT: Mild sore throat, mildly painful swallowing, right submandibular swelling and pain Respiratory: Denies cough or shortness of breath. [] Cardiovascular: Denies chest pain or edema. [] GI: Denies abdominal pain, nausea, vomiting Musculoskeletal: Denies back pain or joint pain. [] Integument: Denies rash. [] Neurologic: Denies headache, focal weakness or sensory changes. [] Lymphatic: Right submandibular swelling Psychiatric: Denies depression or anxiety. [] (HARRIET ATKINSON DO) Heart Score: C/O Chest Pain: No Risk Factors: Risk Factors: DM, Current or recent (<one month) smoker, HTN, HLP, family history of CAD, obesity. Risk Scores: Score 0 - 3: 2.5% MACE over next 6 weeks - Discharge Home Score 4 - 6: 20.3% MACE over next 6 weeks - Admit for Clinical Observation Score 7 - 10: 72.7% MACE over next 6 weeks - Early Invasive Strategies (HARRIET ATKINSON DO) Allergies: Allergies: Allergies Coded Allergies Type Severity Reaction Last Updated Verified Sulfa (Sulfonamide Antibiotics) Allergy Severe Swelling 05/14/19 Yes I S O L A T I O N *CONTACT* Allergy Unknown 10/21/19 Yes (SANDRA ATKINSONN Melonie AGUILERA) Physical Exam: PE: Constitutional: Well developed, well nourished, no acute distress, non-toxic appearance. [] HENT: Normocephalic, atraumatic, oropharynx is patent and clear, mucous membranes are moist. Uvula midline. There is a moderate amount of round swelling of the right submandibular area, this area is markedly tender, there is mild warmth. Mild trismus noted. No drooling, no stridor, voice is clear and not muffled, she is controlling secretions well. No evidence of facial or oral trauma. Eyes: PERRL, EOMI, conjunctiva normal, no discharge. [] Neck: Trachea is midline, no meningismus. Soft tissue swelling of the right submandibular area, soft tissue swelling and tenderness of the right anterior neck, adjacent to the proximal sternocleidomastoid. No thyromegaly. No meningismus. Cardiovascular:Heart rate regular rhythm, warm and well-perfused Lungs & Thorax: Bilateral breath sounds clear to auscultation, no rales, rhonchi or wheezes, no stridor, controlling secretions, no cyanosis, no distress Skin: Warm, dry, no erythema, no rash. [] Extremities: No limb deformity, no edema Neurologic: Awake, alert, oriented x3, no facial asymmetry, grossly normal motor function, ambulatory to steady gait, speech is fluent Psychologic: Affect normal, judgement normal, mood normal. [] (CHINAHARRIET Wilhelm DO) Current Patient Data: Vital Signs: Vital Signs Date Time Temp Pulse Resp B/P (MAP) Pulse Ox O2 Delivery O2 Flow Rate FiO2 08/06/21 05:49 99.1 96 18 115/51 (72) 98 Room Air 99.1 (HARRIET ATKINSON DO) EKG: EKG: [] (HARRIET ATKINSON DO) Radiology/Procedures: Radiology/Procedures: [] (HARRIET ATKINSON DO) Course & Med Decision Making: Course & Med Decision Making Pertinent Labs and Imaging studies reviewed. (See chart for details) I ordered IV placement, IV morphine for pain, IV clindamycin. I ordered labs, as well as CT soft tissue neck with contrast. I discussed the differential diagnosis with the patient, including sialoadenitis, abscess, Laquita's angina, odontogenic infection. Laboratory exams and imaging studies are pending at this time. I am transferring care to Dr. Delgado to follow-up on these studies. (HARRIET ATKINSON DO) Course & Med Decision Making 06:00: I assumed care of this patient at shift turnover. At that time, CT and labs pending. 08:05: All results are reviewed and discussed with the patient. She has sialolithiasis which is responsible for her symptoms. On the right. She has had this previously and did not follow-up for definitive treatment with ENT as was recommended. Currently, no airway compromise. She continues to have pain that she rates to be 10/10. Will give additional pain medication and anticipate discharge home. She was given clindamycin in the ER and will discharge on the same medications. Stable for discharge home and she is strongly recommended again to follow-up with ENT. If her symptoms worsen severely I recommend she go directly to [facility] where ENT specialty is available. She is reexamined just prior to discharge. The posterior oropharynx is clear. The swelling is on the submandibular gland on the right (CARLO DELGADO DO) Dragon Disclaimer: Dragjan Disclaimer: This electronic medical record was generated, in whole or in part, using a voice recognition dictation system. (HARRIET ATKINSON DO) Departure Departure Impression: Primary Impression: Submandibular swelling Additional Impression: Sialoadenitis of submandibular gland Disposition: HOME / SELF CARE / HOMELESS Condition: IMPROVED Referrals: HALLE BUSBY MD Patient Instructions: Sialadenitis, Extended Version Scripts Ibuprofen (IBUPROFEN) 800 Mg Tablet 800 MG PO TID PRN for PAIN for 7 Days, #21 TAB Prov: CARLO DELGADO DO 08/06/21 Clindamycin Hcl (CLINDAMYCIN HCL) 300 Mg Capsule 300 MG PO QID for 10 Days, #40 CAP Prov: CARLO DELGADO DO 08/06/21 Oxycodone/Apap 5-325 (PERCOCET 5-325 MG TABLET ) 1 Each Tablet 1-2 EACH PO PRN TID PRN for SEVERE PAIN 7-10, #20 TAB pain Prov: CARLO DELGADO DO 08/06/21 HARRIET ATKINSON DO Aug 06, 2021 05:58 CARLO DELGADO DO Aug 06, 2021 08:29
[2021-08-06] MEDS ORDERED: CLINDAMYCIN 900MG PREMIX 50 ML IV ONE (06:30)
[2021-08-06] MEDS ORDERED: MORPHINE SULFATE 4 MG/ML INJ. IVP ONE (06:30)
[2021-08-06] MEDS ORDERED: CONTRAST GIVEN. MC PRN (06:45)
[2021-08-06] MEDS ORDERED: IOHEXOL 300 MG/ML 100ML VIAL. IV ONE (07:00)
[2021-08-06 07:07] LABS: BASO % 0 % (0-3); EOS # 0.2 x10^3/uL (0.0-0.7); EOS % 2 % (0-3); HEMATOCRIT 34.6 % (36.0-47.0); HEMOGLOBIN 11.2 g/dL (12.0-15.5); LYMPH # 1.3 x10^3/uL (1.0-4.8); LYMPH % 13 % (24-48); MEAN CORPUSCULAR HEMOGLOBIN 27 pg (25-35); MEAN CORPUSCULAR HGB CONC 32 g/dL (31-37); MEAN CORPUSCULAR VOLUME 85 fL (79-100); MONO % 10 % (0-9); NEUT # 7.4 x10^3/uL (1.8-7.7); NEUT % 74 % (31-73); PLATELET COUNT 282 x10^3/uL (140-400); RED BLOOD COUNT 4.09 x10^6/uL (3.50-5.40); RED CELL DISTRIBUTION WIDTH 14.1 % (11.5-14.5)
[2021-08-06 07:15] LABS: CALCIUM 8.2 mg/dL (8.5-10.1); CREATININE 0.8 mg/dL (0.6-1.0); GFR 97.1; POTASSIUM 3.5 mmol/L (3.5-5.1)
--- NOTE | 2021-08-06 07:51 | RAD ---
PQRS Compliance Statement: One or more of the following individualized dose reduction techniques were utilized for this examinat ion: 1. Automated exposure control 2. Adjustment of the mA and/or kV according to patient size 3. Use of iterative reconstruction technique CT NECK SOFT TISSUE WITH IV CONTRAST Clinical Indication: Reason: right submandibular pain, swelling Comparison: CT soft tissue neck with contrast, November 06, 2013. TECHNIQUE: Helical CT imaging of the soft tissues of the neck is performed after 70 cc of Omnipaque 3 00 IV contrast. Findings: Visualized brain is without midline shift. Globes and orbits are intact. The paranasal sinuses and th e mastoid air cells are clear. The right submandibular gland is enlarged and hyperenhancing. There is a 1.1 x 0.9 cm sialolith in th e superior portion of the gland. There is induration of the subcutaneous fat surrounding the right major bmandibular gland. There is a 1.2 cm right submandibular lymph node that is probably reactive. The left submandibular gland is unremarkable. The thyroid gland is symmetric. There are 2 subcentimet er mediastinal lymph nodes. There is biapical paraseptal emphysema. There are a few subcentimeter hiram ateral cervical lymph nodes. There are several left mandible dental cavities. There is degenerative spondylosis of C5/C6 and C6/C7 . IMPRESSION: Findings compatible with right submandibular gland sialadenitis. The right submandibular gland is enl arged and hyperenhancing and there is a large sialolith. There is a mildly enlarged, probably reactiv e right submandibular lymph node. Electronically signed by: Oliver Olvera MD (08/06/2021 7:49 AM) [facility]
[2021-08-06 08:06] VITALS: BP 120/66
[2021-08-06] MEDS ORDERED: CLIN-94 PO (08:28)
[2021-08-06] MEDS ORDERED: IBUP-1060 PO (08:28)
[2021-08-06] MEDS ORDERED: OXYC1TAB15 PO (08:28)
[2021-08-06] MEDS ORDERED: MORPHINE SULFATE 4 MG/ML INJ. IV ONE (08:45)
== END 2021-08-06 09:06 | disposition home or self-care (01) ==
LOC: ER 05:33
DX: K11.20 Sialoadenitis, unspecified (principal); K11.1 Hypertrophy of salivary gland; M54.2 Cervicalgia; F31.9 Bipolar disorder, unspecified; F17.200 Nicotine dependence, unspecified, uncomplicated; Z88.2 Allergy status to sulfonamides; Z91.041 Radiographic dye allergy status
CPT/HCPCS: 36415; 70491; 80048; 81025; 85025; 96365; 96375; 96376; 99285; J2270; J3490; Q9967

== ENCOUNTER 2021-10-25 07:54 | Emergency (ER) | payer OTHER ==
[~2021-10-25] VITALS: Ht 170.2 cm; Wt 89.5 kg
[~2021-10-25 07:54] MED LIST changes: +CLIN-94 PO; +IBUP-1060 PO; +OXYC1TAB15 PO
[2021-10-25 09:21] LABS: BASO # 0.1 x10^3/uL (0.0-0.2); BASO % 0 % (0-3); EOS # 0.2 x10^3/uL (0.0-0.7); EOS % 2 % (0-3); HEMATOCRIT 36.6 % (36.0-47.0); HEMOGLOBIN 12.1 g/dL (12.0-15.5); LYMPH # 1.6 x10^3/uL (1.0-4.8); LYMPH % 10 % (24-48); MEAN CORPUSCULAR HEMOGLOBIN 28 pg (25-35); MEAN CORPUSCULAR HGB CONC 33 g/dL (31-37); MEAN CORPUSCULAR VOLUME 84 fL (79-100); MONO # 1.2 x10^3/uL (0.0-1.1); MONO % 7 % (0-9); NEUT # 12.7 x10^3/uL (1.8-7.7); NEUT % 80 % (31-73); PLATELET COUNT 285 x10^3/uL (140-400); RED BLOOD COUNT 4.35 x10^6/uL (3.50-5.40); RED CELL DISTRIBUTION WIDTH 14.6 % (11.5-14.5); WHITE BLOOD COUNT 15.8 x10^3/uL (4.0-11.0)
[2021-10-25 09:32] LABS: CALCIUM 8.8 mg/dL (8.5-10.1); GFR 74.7
[2021-10-25] MEDS ORDERED: IOHEXOL 300 MG/ML 100ML VIAL. IV ONE (10:00)
[2021-10-25] MEDS ORDERED: CONTRAST GIVEN. MC PRN (10:00)
[2021-10-25 10:20] LABS: % BANDS 4 % (0-9); % EOS 2 % (0-5); % LYMPHS 11 % (24-48); % MONOS 6 % (0-10); % SEGS 77 % (35-66); PLT ESTIMATE ADEQUATE (ADEQUATE)
--- NOTE | 2021-10-25 10:25 | RAD ---
EXAMINATION: CT NECK SOFT TISSUE WITH IV CONTRAST, 10/25/2021 9:46 AM CLINICAL INDICATION: Right submandibular gland swelling versus abscess COMPARISON: CT neck 08/06/2021 TECHNIQUE: Helical CT imaging performed of the soft tissue neck after administration of 70 mL Omnipaq ue 300 intravenous contrast. Sagittal and coronal reformats were obtained. One or more of the following individualized dose reduction techniques were utilized for this examinat ion: 1. Automated exposure control 2. Adjustment of the mA and/or kV according to patient size 3. Use of iterative reconstruction technique. FINDINGS: The right submandibular gland is enlarged and heterogeneous with dilated ducts. There is a 1.0 x 1.0 cm sialolith in an upstream right salivary gland duct (image 61, series 2). The left subman dibular gland is normal in size but also has a prominent ducts. No left sialolith. The parotid and th yroid glands are normal. There is no evidence of abscess. The nasopharynx, oropharynx, hypopharynx, and larynx are normal. There is are prominent right cervica l chain lymph nodes including enlarged right ventricular lymph node measuring 1.7 x 1.1 cm, likely re active. Cervical vasculature is patent. Visualized portion of the brain is normal. Paranasal sinuses and mast oid air cells are clear. Globes and orbits are intact. There is paraseptal emphysema in the lung api dianna. There is mild degenerative disc disease in the cervical spine. IMPRESSION: Right submandibular sialadenitis due to a 1 cm sialolith. Electronically signed by: Grecia Victor MD (10/25/2021 10:23 AM) [id number]
[2021-10-25] MEDS ORDERED: KETOROLAC 15 MG/ML VIAL. IVP ONE (11:00)
--- NOTE | 2021-10-25 12:51 | PHYS DOC ---
Past Medical History Past Medical History: Bipolar Additional Past Medical Histor: SALIVATORY STONES Past Surgical History: Cholecystectomy, Tubal ligation Additional Past Surgical Histo: Conization Smoking Status: Heavy Tobacco Smoker Alcohol Use: None Drug Use: Marijuana, Methamphetamine, Phencyclidine General Adult EDM: Chief Complaint: NECK PAIN HPI: HPI: 41-year-old female presents with pain under her right jaw. History of possible infection to the area in the past. She does not know what it caused in the past. Today she states the pain started while she was sleeping 2 days ago. It has gotten progressively worse and is now localized to the right lower mandible/neck. No fever or chills. No vomiting or diarrhea. No trauma to the area. Denies any knowing about any dental caries. Review of Systems: Review of Systems: Constitutional: Denies fever or chills. [] Eyes: Denies change in visual acuity. [] HENT: Right neck pain Respiratory: Denies cough or shortness of breath. [] Cardiovascular: Denies chest pain or edema. [] GI: Denies abdominal pain, nausea, vomiting, bloody stools or diarrhea. [] : Denies dysuria. [] Musculoskeletal: Denies back pain or joint pain. [] Integument: Denies rash. [] Neurologic: Denies headache, focal weakness or sensory changes. [] Endocrine: Denies polyuria or polydipsia. [] Lymphatic: Denies swollen glands. [] Psychiatric: Denies depression or anxiety. [] Heart Score: C/O Chest Pain: No Risk Factors: Risk Factors: DM, Current or recent (<one month) smoker, HTN, HLP, family history of CAD, obesity. Risk Scores: Score 0 - 3: 2.5% MACE over next 6 weeks - Discharge Home Score 4 - 6: 20.3% MACE over next 6 weeks - Admit for Clinical Observation Score 7 - 10: 72.7% MACE over next 6 weeks - Early Invasive Strategies Current Medications: Current Medications Medications (Trade) Dose Ordered Sig/Yanni Start Time Stop Time Status Last Admin Dose Admin Info (CONTRAST GIVEN -- Rx MONITORING) 1 each PRN DAILY PRN 10/25/21 10:00 10/27/21 09:59 Iohexol (Omnipaque 300 Mg/ml) 70 ml 1X ONCE 10/25/21 10:00 10/25/21 10:01 DC 10/25/21 09:55 70 ML Ketorolac Tromethamine (Toradol 15mg Vial) 15 mg 1X ONCE 10/25/21 11:00 10/25/21 11:01 DC 10/25/21 11:00 15 MG Allergies: Allergies: Allergies Coded Allergies Type Severity Reaction Last Updated Verified Sulfa (Sulfonamide Antibiotics) Allergy Severe Swelling 05/14/19 Yes I S O L A T I O N *CONTACT* Allergy Unknown 10/21/19 Yes Physical Exam: PE: Constitutional: Well developed, well nourished, no acute distress, non-toxic appearance. [] HENT: Normocephalic, atraumatic, bilateral external ears normal, oropharynx moist, no oral exudates, nose normal. [] Eyes: PERRLA, EOMI, conjunctiva normal, no discharge. [] Neck: Right neck displays a tender firm mass under the right mandibular area, no stones visualized along the lower gumline Cardiovascular:Heart rate regular rhythm, no murmur [] Lungs & Thorax: Bilateral breath sounds clear to auscultation [] Abdomen: Bowel sounds normal, soft, no tenderness, no masses, no pulsatile masses. [] Skin: Warm, dry, no erythema, no rash. [] Back: No tenderness, no CVA tenderness. [] Extremities: No tenderness, no cyanosis, no clubbing, ROM intact, no edema. [] Neurologic: Alert and oriented X 3, normal motor function, normal sensory function, no focal deficits noted. [] Psychologic: Affect normal, judgement normal, mood normal. [] Current Patient Data: Labs: Laboratory Tests Test 10/25/21 09:05 White Blood Count 15.8 x10^3/uL (4.0-11.0) H Red Blood Count 4.35 x10^6/uL (3.50-5.40) Hemoglobin 12.1 g/dL (12.0-15.5) Hematocrit 36.6 % (36.0-47.0) Mean Corpuscular Volume 84 fL (79-100) Mean Corpuscular Hemoglobin 28 pg (25-35) Mean Corpuscular Hemoglobin Concent 33 g/dL (31-37) Red Cell Distribution Width 14.6 % (11.5-14.5) H Platelet Count 285 x10^3/uL (140-400) Neutrophils (%) (Auto) 80 % (31-73) H Lymphocytes (%) (Auto) 10 % (24-48) L Monocytes (%) (Auto) 7 % (0-9) Eosinophils (%) (Auto) 2 % (0-3) Basophils (%) (Auto) 0 % (0-3) Neutrophils # (Auto) 12.7 x10^3/uL (1.8-7.7) H Lymphocytes # (Auto) 1.6 x10^3/uL (1.0-4.8) Monocytes # (Auto) 1.2 x10^3/uL (0.0-1.1) H Eosinophils # (Auto) 0.2 x10^3/uL (0.0-0.7) Basophils # (Auto) 0.1 x10^3/uL (0.0-0.2) Segmented Neutrophils % 77 % (35-66) H Band Neutrophils % 4 % (0-9) Lymphocytes % 11 % (24-48) L Monocytes % 6 % (0-10) Eosinophils % 2 % (0-5) Platelet Estimate Adequate (ADEQUATE) Sodium Level 135 mmol/L (136-145) L Potassium Level 4.0 mmol/L (3.5-5.1) Chloride Level 100 mmol/L (98-107) Carbon Dioxide Level 26 mmol/L (21-32) Anion Gap 9 (6-14) Blood Urea Nitrogen 11 mg/dL (7-20) Creatinine 1.0 mg/dL (0.6-1.0) Estimated GFR (Cockcroft-Gault) 74.7 Glucose Level 97 mg/dL (70-99) Calcium Level 8.8 mg/dL (8.5-10.1) Laboratory Tests 10/25/21 09:05 Laboratory Tests 10/25/21 09:05 Vital Signs: Vital Signs Date Time Temp Pulse Resp B/P (MAP) Pulse Ox O2 Delivery O2 Flow Rate FiO2 10/25/21 12:00 80 18 110/72 (85) 100 Room Air 10/25/21 08:06 98.8 98.8 EKG: EKG: [] Radiology/Procedures: Radiology/Procedures: [] Course & Med Decision Making: Course & Med Decision Making Pertinent Labs and Imaging studies reviewed. (See chart for details) Patient has a large 1 cm stone in her salivary duct. Given her overall discomfort and pain control I will transfer her to a facility that has ENT. I spoke with ENT on-call for their hospital Em Disclaimer: Em Disclaimer: This electronic medical record was generated, in whole or in part, using a voice recognition dictation system. Departure Departure Impression: Primary Impression: Sialoadenitis of submandibular gland Disposition: 02 SHORT TERM HOSPITAL Condition: STABLE Referrals: UNKNOWN PCP NAME (PCP) SALLY WOODS MD October 25, 2021 12:51
[2021-10-25 13:00] VITALS: BP 95/53
== END 2021-10-25 13:30 | disposition short-term general hospital (02) ==
LOC: ER 07:54
DX: K11.20 Sialoadenitis, unspecified (principal); Z20.822 Contact with and (suspected) exposure to COVID-19; F31.9 Bipolar disorder, unspecified; Z72.0 Tobacco use; Z88.2 Allergy status to sulfonamides; Z91.041 Radiographic dye allergy status
CPT/HCPCS: 36415; 70491; 80048; 85007; 85025; 87426; 96374; 99285; J1885; Q9967

== ENCOUNTER 2021-11-09 04:13 | Emergency (ER) | payer OTHER ==
[~2021-11-09] VITALS: Ht 162.6 cm; Wt 82.5 kg
[2021-11-09 04:30] VITALS: BP 131/67
[2021-11-09] MEDS ORDERED: AMOX1TAB61 PO (04:43)
--- NOTE | 2021-11-09 04:43 | PHYS DOC ---
Past Medical History Past Medical History: Bipolar Additional Past Medical Histor: SALIVATORY STONES Past Surgical History: Cholecystectomy, Tubal ligation Additional Past Surgical Histo: Conization Smoking Status: Heavy Tobacco Smoker Alcohol Use: None Drug Use: Marijuana, Methamphetamine, Phencyclidine General Adult EDM: Chief Complaint: OTHER COMPLAINTS HPI: HPI: Patient is a 41 year old female presents with right-sided neck pain. I recently saw her for sialoadenitis and she thinks the duct has been blocked agai n. She has swelling and pain on the right side of her neck. Was recently seen at a different facility after being transferred from here and they placed her on antibiotics and she states that the swelling came down to by herself. No fever or chills. No vomiting or diarrhea. Review of Systems: Review of Systems: Constitutional: Denies fever or chills. [] Eyes: Denies change in visual acuity. [] HENT: Right-sided neck pain and swelling Respiratory: Denies cough or shortness of breath. [] Cardiovascular: Denies chest pain or edema. [] GI: Denies abdominal pain, nausea, vomiting, bloody stools or diarrhea. [] : Denies dysuria. [] Musculoskeletal: Denies back pain or joint pain. [] Integument: Denies rash. [] Neurologic: Denies headache, focal weakness or sensory changes. [] Endocrine: Denies polyuria or polydipsia. [] Lymphatic: Denies swollen glands. [] Psychiatric: Denies depression or anxiety. [] Heart Score: C/O Chest Pain: No Risk Factors: Risk Factors: DM, Current or recent (<one month) smoker, HTN, HLP, family history of CAD, obesity. Risk Scores: Score 0 - 3: 2.5% MACE over next 6 weeks - Discharge Home Score 4 - 6: 20.3% MACE over next 6 weeks - Admit for Clinical Observation Score 7 - 10: 72.7% MACE over next 6 weeks - Early Invasive Strategies Allergies: Allergies: Allergies Coded Allergies Type Severity Reaction Last Updated Verified Sulfa (Sulfonamide Antibiotics) Allergy Severe Swelling 05/14/19 Yes I S O L A T I O N *CONTACT* Allergy Unknown 10/21/19 Yes Physical Exam: PE: Constitutional: Well developed, well nourished, no acute distress, non-toxic appearance. [] HENT: Normocephalic, atraumatic, bilateral external ears normal, oropharynx moist, no oral exudates, nose normal. [] Eyes: PERRLA, EOMI, conjunctiva normal, no discharge. [] Neck: Circular swollen hardened area on the right anterior neck on the superior aspect underneath the jaw Cardiovascular:Heart rate regular rhythm, no murmur [] Lungs & Thorax: Bilateral breath sounds clear to auscultation [] Abdomen: Bowel sounds normal, soft, no tenderness, no masses, no pulsatile masses. [] Skin: Warm, dry, no erythema, no rash. [] Back: No tenderness, no CVA tenderness. [] Extremities: No tenderness, no cyanosis, no clubbing, ROM intact, no edema. [] Neurologic: Alert and oriented X 3, normal motor function, normal sensory function, no focal deficits noted. [] Psychologic: Affect normal, judgement normal, mood normal. [] EKG: EKG: [] Radiology/Procedures: Radiology/Procedures: [] Course & Med Decision Making: Course & Med Decision Making Pertinent Labs and Imaging studies reviewed. (See chart for details) I suspect the patient's sialadenitis has returned and she is having a blocked duct. I will prescribe her antibiotics and asked her to take sialagogues and to massage the area. She will also follow-up with ENT as necessary. I will give her a referral. Em Disclaimer: Em Disclaimer: This electronic medical record was generated, in whole or in part, using a voice recognition dictation system. Departure Departure Impression: Primary Impression: Submandibular swelling Additional Impression: Sialoadenitis of submandibular gland Disposition: HOME / SELF CARE / HOMELESS Condition: STABLE Referrals: UNKNOWN PCP NAME (PCP) Patient Instructions: Sialadenitis, Extended Version Scripts Amoxicillin/Potassium Clav (AUGMENTIN 875-125 TABLET) 1 Each Tablet 1 TAB PO BID for 5 Days, #10 TAB 0 Refills Prov: SALLY WOODS MD 11/09/21 SALLY WOODS MD November 09, 2021 04:43
== END 2021-11-09 04:53 | disposition home or self-care (01) ==
LOC: ER 04:13
DX: K11.20 Sialoadenitis, unspecified (principal); F31.9 Bipolar disorder, unspecified; F17.200 Nicotine dependence, unspecified, uncomplicated; Z88.2 Allergy status to sulfonamides; Z88.8 Allergy status to other drugs, medicaments and biological substances
CPT/HCPCS: 99283